=== PATIENT | female | born 1990 | race Caucasian/White ===

== ENCOUNTER 2022-06-30 10:53 | Emergency (ER) | payer OTHER, SELFPAY ==
[2022-06-30 11:10] VITALS: BP 132/80; PULSE 86; RESP 18; TEMP 36.4; O2SAT 99
== END 2022-07-01 04:48 | disposition left against medical advice (07) ==
DX: R10.30 Lower abdominal pain, unspecified (principal)
CPT/HCPCS: 99199

== ENCOUNTER 2022-07-17 18:21 | Emergency (ER) | payer OTHER, SELFPAY ==
[2022-07-17 18:24] VITALS: BP 128/78; PULSE 90; RESP 16; TEMP 36.6; O2SAT 99
--- NOTE | 2022-07-17 18:28 | ECG_ITS ---
Measurements Intervals [place] Rate: 80 P: 18 [place]: 125 QRS: 15 QRSD: 76 T: 20 QT: 349 QTc: 403 Interpretive Statements SINUS RHYTHM WITH SINUS ARRHYTHMIA BASELINE ARTIFACT- I, II, III, AVR, AVF NORMAL ECG COMPARED TO ECG 01/20/2019 15:20:59 SINUS ARRHYTHMIA NOW PRESENT Electronically Signed On 07-17-2022 18:38:55 [employer] by Michael Clemons D.O.
[2022-07-17 18:45] LABS: Basophils Absolute Auto 0.1 K/mm3 (0.0-0.1); Basophils Percent Auto 0.4 % (0.2-1.2); Eosinophils Absolute Auto 0.1 K/mm3 (0-0.3); Eosinophils Percent Auto 0.4 % (0-4.4); Hematocrit 37.7 % (37.0-47.0); Hemoglobin 12.4 g/dL (12.0-15.0); Immature Granulocyte Absolute 0.09 K/mm3 (0.00-0.031); Immature Granulocyte Percent A 0.6 % (0-0.5); Lymphocytes Absolute Auto 4.37 K/mm3 (0.9-3.2); Lymphocytes Percent Auto 27.6 % (18.3-44.2); Mean Corpuscular HGB Conc 32.9 g/dl (32-36); Mean Corpuscular Hemoglobin 27.9 pg (26-34); Mean Corpuscular Volume 84.9 fl (80-100); Mean Platelet Volume 9.9 fl (7.4-10.4); Monocytes Absolute Auto 0.9 K/mm3 (0.1-0.6); Monocytes Percent Auto 5.6 % (2.6-8.5); Neutrophils Absolute Auto 10.3 K/mm3 (1.3-6.7); Neutrophils Percent Auto 65.4 % (45.5-73.1); Platelet Count Result 395 k/mm3 (150-375); Red Blood Count 4.44 M/mm3 (4.2-5.4); Red Cell Distribution Width 13.4 % (11.5-14.5); White Blood Count 15.8 K/mm3 (4.5-10.0)
[2022-07-17 18:58] LABS: Add Urine Microscopic? YES; Appearance Urine Slightly Cloudy (Clear); Bilirubin Urine Negative (Negative); Blood Urine Trace-Intact (Negative); Color Urine Yellow (Yellow); Glucose Urine UA Negative (Negative); Ketones Urine Negative (Negative); Leukocyte Esterase Ur 1+ LEU/UL (Negative); Nitrate Urine Negative (Negative); Protein Urine Negative (Negative); Specific Grav Ur 1.025 (1.001-1.035); Urobilinogen Urine 0.2 mg/dL (<2.0)
[2022-07-17 18:58] LABS: Alanine Aminotransferase 15 U/L (6-35); Albumin Level 4.3 g/dL (3.5-5.1); Alkaline Phosphatase 56 U/L (38-126); Anion Gap 10 mmol/L (8-16); Aspartate Amino Transferase 21 U/L (14-36); Bilirubin,Total 0.2 mg/dL (0.2-1.3); Blood Urea Nitrogen 11 mg/dL (7-17); Calcium 9.5 mg/dL (8.4-10.2); Carbon Dioxide 23 mmol/L (22-30); Chloride 106 mmol/L (98-107); Estimated CRCL calculation 116 ml/min; Estimated Glomerular Filt Rate > 60; Glucose 91 mg/dL (65-110); Lipase 120 U/L (23-300); Potassium 3.7 mmol/L (3.4-5.0); Sodium 139 mmol/L (137-145)
[2022-07-17 19:15] LABS: Bacteria Urine Trace /hpf; Mucus Urine Rare /lpf; Squamous Epithelial Cell Urine Moderate /hpf (Few)
[2022-07-17 19:55] VITALS: BP 122/84; PULSE 74; RESP 18; TEMP 36.7; O2SAT 100
[2022-07-17 23:11] VITALS: PULSE 80
--- NOTE | 2022-07-17 23:51 | ED.DIZZY ---
HPI - Dizziness General Chief Complaint: Dizziness Stated Complaint: 8 weeks , sob, fever, dizzy, light headed Time Seen by Provider: 07/17/22 22:48 Source: patient Mode of arrival: ambulatory Limitations: no limitations History of Present Illness HPI Narrative: Patient is a 31-year-old female who presents the ED with multiple complaints. Patient reports having dizziness and lightheadedness for the past couple of days, and palpations for the last 2 days. Patient is currently approximately 8 weeks gestation. G2, P1. She is scheduled to see Dr. Glover next week for her first appointment. She has had a confirmed IUP at an outside hospital after an episode of vaginal bleeding recently. She currently denies any abdominal pain or vaginal bleeding. She does report she has had nausea with eating or drinking and has had a decreased p.o. intake. No vomiting. She states she has not had any dizziness since being in the ED. No recent cough or cold symptoms. No CP or SOB. No urinary symptoms. No diarrhea or constipation. No headache or vision changes. Related Data Allergies Allergy/AdvReac Type Severity Reaction Status Date / Time No Known Allergies Allergy Unverified 01/20/19 16:07 Review of Systems Review of Systems: CONSTITUTIONAL: Reports decreased PO intake. Denies fever, chills, or sweats. ENT: Denies rhinorrhea, congestion, sore throat. CARDIOVASCULAR: Reports palpitations. Denies chest pain. RESPIRATORY: Denies cough or dyspnea. GASTROINTESTINAL: Reports nausea. Denies abdominal pain, vomiting, or diarrhea. GENITOURINARY: Denies dysuria or hematuria. NEUROLOGIC: See HPI. All systems reviewed & are unremarkable except as noted in HPI and below [facility] Past Medical History Medical History (Updated 07/18/22 @ 01:05 by Tatyana Ladd PA-C) Anxiety Surgical History Surgical History (Updated 07/17/22 @ 23:52 by Tatyana Ladd PA-C) No pertinent past surgical history Social History Social History (Updated 07/17/22 @ 23:52 by Tatyana Ladd PA-C) Smoking status: Never smoker Exam Narrative: GENERAL: Well appearing, obese, non-toxic, in no acute distress. HEAD: Normocephalic, atraumatic. EYES: PERRLA/EOMI, conjunctiva clear. ENT: MMs slightly dry. NECK: Supple. No adenopathy, no masses. RESPIRATORY: Airway patent, respirations nonlabored. Clear to auscultation bilaterally, no rales, rhonchi, wheezing. CARDIOVASCULAR: Regular rate and rhythm without murmurs, rubs, or gallops. Radial pulses 2+ and equal bilaterally. ABDOMINAL: Soft, nontender, nondistended, no hepatosplenomegaly. Normoactive BS. MUSCULOSKELETAL: Moves all extremities. Strength/ROM intact without gross deformities. SKIN: Warm, dry, normal color. No rashes. NEURO: A&O X3. Speech clear. Cranial nerves II-XII grossly intact. Steady gait. No ataxic movements. No focal deficits. PSYCHIATRIC: Appropriate mood and affect. Normal interaction. Course Vital Signs Vital signs: Vital Signs Temperature 97.8 F 07/17/22 18:24 Pulse Rate 90 07/17/22 18:24 Respiratory Rate 16 07/17/22 18:24 Blood Pressure 128/78 07/17/22 18:24 Pulse Oximetry 99 07/17/22 18:24 Oxygen Delivery Room Air 07/17/22 18:24 Temperature 98.0 F 07/17/22 19:55 Pulse Rate 81 07/18/22 01:30 Respiratory Rate 18 07/17/22 19:55 Blood Pressure 119/83 07/18/22 01:30 Pulse Oximetry 100 07/17/22 19:55 Oxygen Delivery Room Air 07/17/22 19:55 MDM - Dizziness MDM Narrative Medical decision making narrative: Patient presented to ED with multiple complaints, dizziness. Currently 8 weeks gestation, confirmed IUP, denying abdominal pain or vaginal bleeding at this time. Basic labs obtained and fairly unremarkable. Mild leukocytosis of 15.8. CMP unremarkable. Beta quant greater than 100,000. EKG with sinus arrhythmia, otherwise no acute ST changes. No report of CP or SOB. COVID and flu negative. UA suspicious for infection w
[2022-07-17 23:54] VITALS: BP 120/72; PULSE 80
[2022-07-17 23:55] VITALS: BP 104/82; PULSE 78
[2022-07-17 23:57] VITALS: BP 112/73; PULSE 98
[2022-07-18] MEDS: SODIUM CHLORIDE 0.9% IV 1,000 ML 999 ML IV CONT (00:14)
[2022-07-18 00:42] LABS: Influenza A QL RT-PCR Negative (Negative); Influenza B QL RT-PCR Negative (Negative); SARS-CoV-2 RNA PCR Negative
[2022-07-18 01:28] VITALS: BP 119/73; BP 124/88; PULSE 77; PULSE 81
[2022-07-18 01:30] VITALS: BP 119/83; PULSE 81
== END 2022-07-18 02:00 | disposition home or self-care (01) ==
PROVIDERS: Emergency Medicine; Emergency Provider Physician Assistant; PCP Obstetrics & Gynecology
DX: O26.51 Maternal hypotension syndrome, first trimester (principal); O23.41 Unspecified infection of urinary tract in pregnancy, first trimester; O21.9 Vomiting of pregnancy, unspecified; Z3A.08 8 weeks gestation of pregnancy; Z20.822 Contact with and (suspected) exposure to COVID-19
CPT/HCPCS: 36415; 80053; 81001; 83690; 84702; 85025; 87086; 87088; 87636; 93005; 96365; 99284; J0696; J7030

== ENCOUNTER 2022-12-21 12:40 | Observation (INO) | payer OTHER, SELFPAY ==
[2022-12-21] VITALS (9 sets, daily range): BP systolic 100–127; BP diastolic 62–88; PULSE 83–123; RESP 18–20; TEMP 36.4–36.6; O2SAT 99; BMI 41.3
--- NOTE | 2022-12-21 13:11 | PC.NURSE ---
pt states she was unaware that OB and ED were different areas. pt states her OB wanted her to go to L&D to be checked for preeclampsia. Spoke with OB, pt to be transferred over to their department now and not seen in ED.
--- NOTE | 2022-12-21 13:45 | OBADM ---
This patient, Corky Flores, admitted to the OB room 115 per wheelchair from the ED for observation for abdominal cramping and headache. Patient/family oriented to hospital policies and general routines including ID bracelet, bed and alarms, visiting hours, pain management, procedures, bathroom and other care routines, personal items, smoking policy, room service/diet, and visiting hours. Patient/Family are encouraged to report perceived risks to care and to ask questions if they do not understand what they are told or what they should do.
[2022-12-21 14:36] LABS: Appearance Urine Clear (Clear); Bacteria Urine None Seen /hpf; Bilirubin Urine Negative (Negative); Blood Urine Negative (Negative); Color Urine Yellow (Yellow); Glucose Urine UA Negative (Negative); Ketones Urine 1+ mg/dL (Negative); Leukocyte Esterase Ur Trace LEU/UL (Negative); Nitrate Urine Negative (Negative); Non Pathogenic Casts 0-2; Protein Urine Negative (Negative); RBC Urine 0-2 /hpf (0-2); Specific Grav Ur 1.009 (1.001-1.035); Squamous Epithelial Cell Urine Few /hpf (Few); Urobilinogen Urine 0.2 mg/dL (<2.0); pH Urine 6.5 (5.0-9.0)
[2022-12-21 14:44] LABS: Add Urine Microscopic? YES
[2022-12-21] MEDS: TERBUTALINE SULFATE 1 MG/ML VIAL 0.25 MG SUB-Q (16:33)
--- NOTE | 2023-01-11 22:55 | P.PNOB_ITS ---
OB - Triage/Final Diagnosis Visit Information Comments/Additional reasons for admission: I have assessed the risk for this patient, Corky Flores, and determined that she would benefit from observation care. Evaluation Laboratory results: Laboratory Tests 12/21/22 14:25 Urine Color Yellow Urine Appearance Clear Urine pH 6.5 Ur Specific [place] 1.009 Urine Protein Negative Urine Glucose (UA) Negative Urine Ketones 1+ H Ur Blood (Man) Negative Urine Nitrate Negative Urine Bilirubin Negative Urine Urobilinogen 0.2 Leukocyte Esterase Rfl Trace H Urine RBC 0-2 Urine WBC 6-10 H Ur Squamous Epith Cells Few Urine Bacteria None seen Urine Casts 0-2 Final Diagnosis (1) False labor: Code(s): O47.9 - False labor, unspecified Status: Acute
== END 2022-12-21 18:06 | disposition home or self-care (01) ==
LOC: ANHED 13:13 → ANHOBPP 13:18
PROVIDERS: Admitting Provider Obstetrics & Gynecology; Emergency Provider Obstetrics & Gynecology; PCP Obstetrics & Gynecology; Visit Provider Obstetrics & Gynecology
DX: O47.03 False labor before 37 completed weeks of gestation, third trimester (principal); O26.893 Other specified pregnancy related conditions, third trimester; R10.9 Unspecified abdominal pain; Z3A.30 30 weeks gestation of pregnancy
CPT/HCPCS: 81001; 87086; 96365; 96372; G0378; G0379; J0696; J3105

== ENCOUNTER 2022-12-25 17:07 | Observation (INO) | payer OTHER, SELFPAY ==
[2022-12-25 17:26] VITALS: BP 102/65; PULSE 113
[2022-12-25 17:30] VITALS: BP 92/74; PULSE 111
[2022-12-25 18:00] VITALS: BP 106/62; PULSE 100
--- NOTE | 2022-12-25 18:06 | OBADM ---
This patient, Corky Flores, admitted to the OB room OB Post 117 for observation. pt states she was feeling occasional contractions at work and some of them were strong. she has been taking antibiotics for UIT since . Patient/family oriented to hospital policies and general routines including ID bracelet, bed and alarms, visiting hours, pain management, procedures, bathroom and other care routines, personal items, smoking policy, room service/diet, and visiting hours. Patient/Family are encouraged to report perceived risks to care and to ask questions if they do not understand what they are told or what they should do.
[2022-12-25 18:30] VITALS: BP 100/58; PULSE 101
--- NOTE | 2022-12-25 18:54 | PC.NURSE ---
Discharge instructions given to patient at this time with labor precautions, vaginal bleeding, leaking of fluid, decreased movement, and reasons to call or come back to the hospital. Patient verbalizes understanding. Printer error so no signature obtained but patient gives verbal confirmation of discharge instructions.
--- NOTE | 2023-01-21 19:34 | PM.OBTRLD ---
OB - Triage/Final Diagnosis Visit Information Comments/Additional reasons for admission: I have assessed the risk for this patient, Corky Flores, and determined that she would benefit from observation care. Final Diagnosis (1) False labor: Code(s): O47.9 - False labor, unspecified Status: Acute
== END 2022-12-25 18:58 | disposition home or self-care (01) ==
PROVIDERS: Admitting Provider Obstetrics & Gynecology; Visit Provider Obstetrics & Gynecology
DX: O47.03 False labor before 37 completed weeks of gestation, third trimester (principal); Z3A.30 30 weeks gestation of pregnancy
CPT/HCPCS: 59025; G0378; G0379

== ENCOUNTER 2023-01-01 21:50 | Observation (INO) | payer OTHER, SELFPAY ==
[2023-01-01 22:05] VITALS: BP 116/66; PULSE 91
[2023-01-01 22:06] VITALS: BMI 40.1
--- NOTE | 2023-01-01 22:06 | OBADM ---
This patient, Corky Flores, admitted to the OB room OB Post 117 for observation. Patient/family oriented to hospital policies and general routines including ID bracelet, bed and alarms, visiting hours, pain management, procedures, bathroom and other care routines, personal items, smoking policy, room service/diet, and visiting hours. Patient/Family are encouraged to report perceived risks to care and to ask questions if they do not understand what they are told or what they should do.
[2023-01-01 22:16] VITALS: BP 118/60; PULSE 91
[2023-01-01 22:31] VITALS: BP 114/68; PULSE 98
[2023-01-01 22:45] VITALS: BP 112/63; PULSE 100
[2023-01-01 23:40] LABS: Appearance Urine Clear (Clear); Bilirubin Urine Negative (Negative); Blood Urine Negative (Negative); Color Urine Yellow (Yellow); Glucose Urine UA Negative (Negative); Ketones Urine 3+ mg/dL (Negative); Leukocyte Esterase Ur Negative LEU/UL (Negative); Nitrate Urine Negative (Negative); Protein Urine Negative (Negative); Specific Grav Ur 1.022 (1.001-1.035); Urobilinogen Urine 0.2 mg/dL (<2.0); pH Urine 5.5 (5.0-9.0)
[2023-01-01 23:53] LABS: Add Urine Microscopic? YES
--- NOTE | 2023-01-21 20:52 | P.PNOB_ITS ---
OB - Triage/Final Diagnosis Visit Information Comments/Additional reasons for admission: I have assessed the risk for this patient, Corky Flores, and determined that she would benefit from observation care. Evaluation Laboratory results: Laboratory Tests 01/01/23 23:33 Urine Color Yellow Urine Appearance Clear Urine pH 5.5 Ur Specific [place] 1.022 Urine Protein Negative Urine Glucose (UA) Negative Urine Ketones 3+ H Ur Blood (Man) Negative Urine Nitrate Negative Urine Bilirubin Negative Urine Urobilinogen 0.2 Leukocyte Esterase Rfl Negative Final Diagnosis (1) False labor: Code(s): O47.9 - False labor, unspecified Status: Acute
== END 2023-01-02 00:12 | disposition home or self-care (01) ==
PROVIDERS: Admitting Provider Obstetrics & Gynecology; Visit Provider Obstetrics & Gynecology
DX: O47.03 False labor before 37 completed weeks of gestation, third trimester (principal); Z3A.31 31 weeks gestation of pregnancy
CPT/HCPCS: 81001; G0378; G0379

== ENCOUNTER 2023-02-14 15:06 | Inpatient (IN) | payer OTHER, SELFPAY ==
[2023-02-14] VITALS (82 sets, daily range): BP systolic 91–140; BP diastolic 48–89; PULSE 25–148; RESP 18; TEMP 36.4; O2SAT 79–100; BMI 39.2
[2023-02-14] MEDS: LACTATED RINGERS 1,000 ML 125 ML IV CONT ×2 (17:21→18:33)
[2023-02-14] MEDS: OXYTOCIN 30 UNITS/NS 500 ML 30 UNITS/500 ML BAG IV CONT (17:25)
--- NOTE | 2023-02-14 17:35 | P.PNAN_ITS ---
Anes - Eval Pre Procedure Procedure: labor epidural Date/Time: 02/14/23 17:35 Pre Op Diagnosis: nst Patient Data Age: 32 Gender: F Height: Weight: Last Vital Signs Pulse 92 02/14/23 17:32 BP 123/61 02/14/23 17:32 Allergies Allergy/AdvReac Type Severity Reaction Status Date / Time No Known Allergies Allergy Verified 12/21/22 13:11 Home Medications Medication Instructions Recorded Confirmed Type sertraline 50 mg tablet 25 mg PO DAILY 12/21/22 02/14/23 History ferrous sulfate 142 mg (45 mg 142 mg PO DAILY 02/14/23 02/14/23 History iron) tablet,extended release (Slow Fe) pediatric multivitamin no.49 2 tablet PO DAILY 02/14/23 02/14/23 History (Flintstones Gummies chewable tablet) Laboratory Tests 02/14/23 02/14/23 17:03 17:07 WBC Pending RBC Pending Hgb Pending Hct Pending MCV Pending MCH Pending MCHC Pending RDW Pending Plt Count Pending MPV Pending Immature Gran % (Auto) Pending Neut % (Auto) Pending Lymph % (Auto) Pending [place] % (Auto) Pending Eos % (Auto) Pending Baso % (Auto) Pending Lymph # (Auto) Pending [place] # (Auto) Pending Eos # (Auto) Pending Baso # (Auto) Pending Abs Immat Gran (auto) Pending Absolute Neuts (auto) Pending Absolute Nucleated RBC Pending Nucleated RBC % Pending RPR Pending Patient hx anesthesia problems: none Family hx anesthesia problems: none Results Review: All pre-operative results and documents have been reviewed as part of the pre- operative evaluation. [facility] Past Medical History Medical History (Updated 02/14/23 @ 17:36 by Rosey Guthrie CRNA) Anxiety Obesity (BMI 30-39.9) Surgical History Surgical History No pertinent past surgical history Social History Social History Smoking status: Never smoker Exam Day of Procedure 02/14/23 17:35 Patient weight: obese Heart: regular rate and rhythm Lungs: normal air movement Airway: Mallampati scale Neurological: alert and oriented
[2023-02-14 17:39] LABS: Basophils Absolute Auto 0.1 K/mm3 (0.0-0.1); Basophils Percent Auto 0.5 % (0.2-1.2); Eosinophils Absolute Auto 0.1 K/mm3 (0-0.3); Eosinophils Percent Auto 0.4 % (0-4.4); Hemoglobin 10.5 g/dL (12.0-15.0); Immature Granulocyte Percent A 2.6 % (0-0.5); Lymphocytes Absolute Auto 3.67 K/mm3 (0.9-3.2); Lymphocytes Percent Auto 23.8 % (18.3-44.2); Mean Corpuscular HGB Conc 31.8 g/dl (32-36); Mean Corpuscular Hemoglobin 26.3 pg (26-34); Mean Corpuscular Volume 82.7 fl (80-100); Mean Platelet Volume 10.8 fl (7.4-10.4); Monocytes Absolute Auto 1.1 K/mm3 (0.1-0.6); Monocytes Percent Auto 6.8 % (2.6-8.5); Neutrophils Absolute Auto 10.2 K/mm3 (1.3-6.7); Neutrophils Percent Auto 65.9 % (45.5-73.1); Platelet Count Result 290 k/mm3 (150-375); Red Blood Count 3.99 M/mm3 (4.2-5.4); Red Cell Distribution Width 16.6 % (11.5-14.5); White Blood Count 15.4 K/mm3 (4.5-10.0)
--- NOTE | 2023-02-14 17:45 | LDADM ---
This patient, Corky Flores, was admitted to Labor/Delivery/Recovery 107 on 02/14/23 at 15:06. Plans for labor, pain management and were discussed with patient. Patient/family oriented to hospital policies and general routines including ID bracelet, bed and alarms, visiting hours, pain management, procedures, bathroom and other care routines, personal items, smoking policy, room service/diet and guest tray routines, security routines, and visiting hours. Patient/Family are encouraged to report perceived risks to care and to ask questions if they do not understand what they are told or what they should do. See OBIX for further documentation.
--- NOTE | 2023-02-14 18:09 | PM.IMHP ---
H&P: HPI History of Present Illness Date/Time: 02/14/23 18:09 pt admitted for IOL, pt c/o only feeling one movement all day. In the office BPP 8/10, points off for breathing. Pt felt something was very wrong prior to her testing. Sent to LD for further monitoring. Previously has noted umbilical cord around neck x 3. Did appear on later us to resolve. has been complicated by obesity, anxiety. on admission NST revealed variables and a late decel, not feeling much movement, discussed with Dr. Glover Chief Complaint: decreased movement Review of Systems Review of Systems: All systems reviewed & are unremarkable except as noted in HPI and below PMFSH Past Medical History Medical History (Updated 02/14/23 @ 18:17 by Sussy Maria CNM) Anxiety Obesity (BMI 30-39.9) Surgical History Surgical History No pertinent past surgical history Family History Family History (Updated 02/14/23 @ 17:54 by Violeta Parekh RN) Sibling Hydronephrosis Social History Social History Smoking status: Never smoker Meds Home Medications and Allergies Home Medications Medication Instructions Recorded Confirmed Type sertraline 50 mg tablet 25 mg PO DAILY 12/21/22 02/14/23 History ferrous sulfate 142 mg (45 mg 142 mg PO DAILY 02/14/23 02/14/23 History iron) tablet,extended release (Slow Fe) pediatric multivitamin no.49 2 tablet PO DAILY 02/14/23 02/14/23 History (Flintstones Gummies chewable tablet) Allergies Allergy/AdvReac Type Severity Reaction Status Date / Time No Known Allergies Allergy Verified 12/21/22 13:11 Vital Signs Vital Signs - 24 hr 02/14/23 17:25 02/14/23 17:31 02/14/23 18:01 Pulse Rate 95 92 103 H Blood Pressure 111/74 123/61 128/86 Oxygen Delivery 02/14/23 17:45 02/14/23 17:32 02/14/23 18:02 Pulse Rate 92 103 H Blood Pressure 123/61 128/86 Oxygen Delivery Room Air Exam Const: General: cooperative and anxious Chest: Chest palpation & inspection: normal inspection of the chest Resp: Effort & Inspection: normal respiratory effort and able to speak in complete sentences Cardio: Rate: regular rate Rhythm: regular rhythm GI: Other: gravid, soft : Other: SVE 3/60/-2 AROM small amount of clear odorless fluid Skin: General skin exam: normal color Extrem: Right lower extremity: normal to inspection Left lower extremity: normal to inspection Psych: Appearance: grossly normal Mental Status: mental status grossly normal H&P: Results Labs Labs: Short CBC 02/14/23 Range/Units 17:03 WBC 15.4 H (4.5-10.0) K/mm3 Hgb 10.5 L (12.0-15.0) g/dL Hct 33.0 L (37.0-47.0) % Plt Count 290 (150-375) k/mm3 Assessment and Plan Assessment and plan (1) Non-reassuring electronic monitoring tracing: Code(s): O36.8390 - Maternal care for abnormalities of the heart rate or rhythm, unspecified trimester, not applicable or unspecified Status: Acute Plan IOL for non reassuring status anticipate vaginal delivery
[2023-02-14] MEDS: SODIUM CHLORIDE 0.9% IV 300 ML 600 ML I-UTERINE (22:34)
[2023-02-15] VITALS (35 sets, daily range): BP systolic 92–125; BP diastolic 48–73; PULSE 68–179; RESP 15–17; TEMP 36.4–36.6; O2SAT 92–100
--- NOTE | 2023-02-15 01:27 | PM.OBPRVD ---
OB - Delivery Note Procedure Delivery date: 02/15/23 Procedure: vaginal delivery Events: Other (non reassuring heart rate tracing) Induction method: AROM and Per Pitocin Protocol Delivery monitor: External FHT and Internal Uterine Route of delivery: Laceration Description: Vaginal (extended into right labia) Delivery repair: vicryl Specimen: Yes Quantitative Blood Loss (ml): 180 Anesthesia type: Epidural Disposition: Floor Baby Date of : 02/15/23 Time of : 01:12 Weeks of gestation at delivery: 38 gender: Male presentation: vertex position: Left Occiput Anterior Placenta delivery description: Spontaneous Cord Vessel Description: 3 Vessels, Nuchal Cord, Loose (x1), Clamped/Cut and Delayed Cord Clamping score one minute: 8 score five minutes: 9 Narrative: mother and baby skin to skin in stable condition
[2023-02-15] MEDS: OXYTOCIN 30 UNITS/NS 500 ML 30 UNITS/500 ML BAG 125 UNITS IV CONT (01:53)
[2023-02-15 06:04] LABS: Rapid Plasma Reagin Non-Reactive (NonReactive)
[2023-02-16] MEDS: ACETAMINOPHEN 325 MG TABLET 650 MG PO ×2 (00:15→07:38)
[2023-02-16 03:58] VITALS: BP 94/61; PULSE 78; RESP 16; TEMP 36.6; O2SAT 97
[2023-02-16 03:58] LABS: Hematocrit 35.1 % (37.0-47.0); Hemoglobin 9.6 g/dL (12.0-15.0)
--- NOTE | 2023-02-16 07:16 | PM.OBPNVD ---
OB - PN: Subj Subjective Date/time seen: 02/16/23 07:16 vaginal delivery pp day 1 OB - PN: Obj Data Labs 02/16/23 03:38 Labs: Laboratory Results - last 24 hr 02/16/23 03:38 Hgb 9.6 L Hct 35.1 L OB - PN A/P Plan day: 1 Plan: routine care Time Spent With Patient Time: Total time spent is greater than 50% in coordination of care (as documented) at patient's floor/unit and/or counseling patient: Review of Systems Review of Systems: All systems reviewed & are unremarkable except as noted in HPI and below Exam Const: General: cooperative, healthy appearing and comfortable Chest: Chest palpation & inspection: normal inspection of the chest Resp: Effort & Inspection: normal respiratory effort Cardio: Rate: regular rate Rhythm: regular rhythm GI: Other: soft Skin: General skin exam: normal color Extrem: Right lower extremity: normal to inspection Left lower extremity: normal to inspection Psych: Appearance: grossly normal
--- NOTE | 2023-02-16 07:26 | PM.OBDSVD ---
DS: Admitting Diagnosis Discharge Date 02/16/23 Admitting Diagnosis non reassuring heart rate DS: Discharge Diagnosis Discharge Diagnosis (1) Vaginal delivery: Code(s): O80 - Encounter for full-term uncomplicated delivery Status: Acute OB - DS: Summary OB Procedures : None OB Procedures Intrapartum: Spontaneous Vag Delivery OB Procedures: : None Time Spent with Patient Time attestation: Total time spent providing and/or coordinating discharge services: DS: Data Data Completed and Pending Pending studies at discharge: Pending at discharge 02/15/23 01:16 Surgical [PTH] Routine Labs on day of discharge: Labs from last 24 hours 02/16/23 03:38 Hgb 9.6 L Hct 35.1 L Discharge Plan Discharge Attending physician on discharge: Ole Glover Discharging Clinician: Sussy Maria Patient Disposition: Home, Self-Care Activity: pelvic rest Diet: regular Patient Instructions: Antibiotic Form Stand Alone Forms: General Discharge Information Follow-up/Referrals: Sussy Maria, CNM [Certified Nurse Public Relations Coordinator] - 4 Weeks Discharge Medications: New sertraline 25 mg tablet 25 mg PO DAILY Qty: 30 1RF Continued Slow Fe 142 mg (45 mg iron) Tablet Extended Release 142 mg PO DAILY Flintstones Gummies Tablet,Chewable 2 tablet PO DAILY Discontinued sertraline 50 mg tablet 25 mg PO DAILY Date of admission: 02/14/23 15:06 Primary Care Provider: PHYSICIAN,STEWARD/STEWARDESS [employer] Admitting Provider: Ole Glover Attending physician on admission: Ole Glover Condition: Stable
[2023-02-16] MEDS: DOCUSATE SODIUM 100 MG CAPSULE PO (07:30)
[2023-02-16] MEDS: POLYSACCHARIDE IRON COMPLEX 150 MG CAPSULE PO (07:38)
[2023-02-16] MEDS: WITCH HAZEL 40 PADS 1 PAD TOPICAL (07:38)
--- NOTE | 2023-02-16 13:08 | WPDANLDPN2 ---
Anes-Prog Note L&D Date/Time: 02/16/23 13:08 Comfortable throughout: labor and delivery Neuraxial method: epidural Epidural/Spinal procedure site: clean & non-tender Neuro status: Neuro function grossly intact. Cardiovascular status: normal Respiratory status: normal Airway patency: baseline Mental status: baseline Post-Op hydration status: normal Vital Signs: Last Vital Signs Temp 36.6 C 02/16/23 03:58 Pulse 78 02/16/23 03:58 Resp 16 02/16/23 03:58 BP 94/61 L 02/16/23 03:58 Pulse Ox 97 02/16/23 03:58 O2 Del Method Room Air 02/15/23 20:00 Pain score (VAS): 3 I/O: Intake & Output 02/15/23 02/16/23 02/16/23 23:59 07:59 15:59 Intake Total 620 120 Balance 620 120 Post-procedural complaints: none Patient feedback: Patient satisfied with anesthetic care.
== END 2023-02-16 13:35 | disposition home or self-care (01) | DRG 560 ==
LOC: ANHOBOP 16:16 → ANHLDR 16:16 → ANHOB2 02-15 13:03
PROVIDERS: Advanced Practice Midwife; Admitting Provider Obstetrics & Gynecology; Visit Provider Obstetrics & Gynecology
DX: O36.8330 Maternal care for abnormalities of the fetal heart rate or rhythm, third trimester, not applicable or unspecified (principal); Z37.0 Single live birth; E66.9 Obesity, unspecified; O36.8130 Decreased fetal movements, third trimester, not applicable or unspecified; Z3A.38 38 weeks gestation of pregnancy; O99.214 Obesity complicating childbirth; O99.344 Other mental disorders complicating childbirth; F41.9 Anxiety disorder, unspecified; O69.81X0 Labor and delivery complicated by cord around neck, without compression, not applicable or unspecified; O71.4 Obstetric high vaginal laceration alone
CPT/HCPCS: 36415; 85014; 85018; 85025; 86592; 86850; 86900; 86901; 88307; A9270; J2590; J2795; J7030; J7120

== ENCOUNTER 2023-06-29 18:13 | Emergency (ER) | payer OTHER, SELFPAY ==
[2023-06-29] VITALS (16 sets, daily range): BP systolic 114–143; BP diastolic 59–85; PULSE 74–92; RESP 12–18; TEMP 36.2–36.8; O2SAT 97–100
--- NOTE | ~2023-06-29 | XR_ITS ---
EXAMINATION: XR chest 1V portable DATE: 06/29/2023 20:23 INDICATION: Weakness TECHNIQUE: frontal view of the chest was obtained. COMPARISON: Chest radiograph dated 01/20/2019 FINDINGS: The lungs remain clear with no focal airspace opacities, pulmonary edema, pleural effusion or pneumot horax. The cardiomediastinal silhouette is normal. Mild lower thoracic levocurvature. IMPRESSION: 1. No acute cardiopulmonary disease. Reviewed, dictated and finalized at location A. [facility]
--- NOTE | 2023-06-29 19:35 | ECG_ITS ---
Measurements Intervals [place] Rate: 80 P: 41 [place]: 140 QRS: 18 QRSD: 86 T: 24 QT: 399 QTc: 460 Interpretive Statements SINUS RHYTHM WITH SINUS ARRHYTHMIA NORMAL ELECTROCARDIOGRAM COMPARED TO ECG 07/17/2022 18:33:36 NO SIGNIFICANT CHANGES Electronically Signed On 06-30-2023 7:36:21 CREDIT INTERN by Chaitanya Fontenot M.D.
[2023-06-29] MEDS: SODIUM CHLORIDE 0.9% IV 1,000 ML 999 ML IV CONT (19:59)
[2023-06-29 20:10] LABS: Basophils Absolute Auto 0.1 K/mm3 (0.0-0.1); Basophils Percent Auto 0.6 % (0.2-1.2); Eosinophils Absolute Auto 0.1 K/mm3 (0-0.3); Eosinophils Percent Auto 1.2 % (0-4.4); Hematocrit 40.8 % (37.0-47.0); Immature Granulocyte Absolute 0.03 K/mm3 (0.00-0.031); Immature Granulocyte Percent A 0.3 % (0-0.5); Lymphocytes Absolute Auto 4.92 K/mm3 (0.9-3.2); Mean Corpuscular HGB Conc 31.9 g/dl (32-36); Mean Corpuscular Hemoglobin 27.3 pg (26-34); Mean Corpuscular Volume 85.5 fl (80-100); Mean Platelet Volume 10.2 fl (7.4-10.4); Monocytes Absolute Auto 0.6 K/mm3 (0.1-0.6); Monocytes Percent Auto 5.2 % (2.6-8.5); Neutrophils Absolute Auto 5.2 K/mm3 (1.3-6.7); Neutrophils Percent Auto 47.7 % (45.5-73.1); Platelet Count Result 462 k/mm3 (150-375); Red Blood Count 4.77 M/mm3 (4.2-5.4); Red Cell Distribution Width 14.1 % (11.5-14.5); White Blood Count 10.9 K/mm3 (4.5-10.0)
[2023-06-29 20:23] LABS: Appearance Urine Clear (Clear); Bilirubin Urine Negative (Negative); Blood Urine Negative (Negative); Color Urine Yellow (Yellow); Glucose Urine UA Negative (Negative); Ketones Urine Negative (Negative); Leukocyte Esterase Ur Negative LEU/UL (Negative); Nitrate Urine Negative (Negative); Protein Urine Negative (Negative); Specific Grav Ur 1.008 (1.001-1.035); Urobilinogen Urine 0.2 mg/dL (<2.0); pH Urine 6.5 (5.0-9.0)
[2023-06-29 20:24] LABS: Lactic Acid Reflex 0.7 mmol/L (0.7-2.0)
[2023-06-29 20:25] LABS: Alanine Aminotransferase 21 U/L (6-35); Albumin Level 4.8 g/dL (3.5-5.1); Alkaline Phosphatase 82 U/L (38-126); Anion Gap 7 mmol/L (8-16); Aspartate Amino Transferase 34 U/L (14-36); Bilirubin,Total 0.5 mg/dL (0.2-1.3); Blood Urea Nitrogen 13 mg/dL (7-17); Calcium 9.5 mg/dL (8.4-10.2); Carbon Dioxide 29 mmol/L (22-30); Chloride 102 mmol/L (98-107); Estimated CRCL calculation 104 ml/min; Estimated Glomerular Filt Rate > 60; Glucose 92 mg/dL (65-110); Magnesium 2.1 mg/dL (1.6-2.3); Potassium 3.8 mmol/L (3.4-5.0); Sodium 138 mmol/L (137-145)
[2023-06-29 20:26] LABS: Add Urine Microscopic? NO
[2023-06-29 20:37] LABS: Troponin I < 0.012 ng/mL (0.000-0.034)
[2023-06-29 20:47] LABS: Influenza A QL RT-PCR Negative (Negative); Influenza B QL RT-PCR Negative (Negative); RSV RNA, RT-PCR Negative (Negative); SARS-CoV-2 RNA PCR Negative (Negative)
--- NOTE | 2023-06-29 20:55 | ED.GENADULT ---
HPI - General Adult General Chief complaint: Dizziness Stated complaint: Dizzy/Lightheaded/[place]/nausea Time Seen by Provider: 06/29/23 19:26 History of Present Illness HPI narrative: patient is a 32-year-old female presents emergency department chief complaint of dizziness. Patient reports the dizziness is a sensation of being lightheaded patient states that it is worse whenever she stands up the patient denies vomiting denies diarrhea reports that her last menstrual period was somewhat heavier but she is currently not having any active bleeding. Related Data Allergies Allergy/AdvReac Type Severity Reaction Status Date / Time No Known Allergies Allergy Verified 06/29/23 18:14 Review of Systems Review of Systems: A 10 system review of systems was completed on the patient and is negative except for what is stated in the HPI. Nursing and ancillary documentation was reviewed. [facility] Past Medical History Medical History Anxiety Obesity (BMI 30-39.9) Surgical History Surgical History No pertinent past surgical history Family History Family History Sibling Hydronephrosis Social History Social History Smoking status: Never smoker Substance use: never Lack of Transportation: No Lack of Food: Never True Current Housing: I Have Housing Concerned About Future Housing: No Difficulty Paying Gas/Electric Bills: YES Difficulty Paying for Meds: No Currently Unemployed: No Education: High School Diploma/GED Difficulty w/ Childcare or Family Care: No Spiritual care concerns: No Exam Narrative: GENERAL: Well-appearing, well-nourished, and in no acute distress. HEAD: Normocephalic, atraumatic. EYES: PERRLA and EOMI. ENT: Nares clear, no rhinorrhea or epistaxis. Mucous membranes moist. NECK: Supple. CHEST: Clear to auscultation. No respiratory distress. HEART: Regular rate and rhythm. No murmur heard. Normal peripheral pulses. ABDOMEN: Soft, nontender, nondistended, normal active bowel sounds. EXTREMITIES: Normal range of motion. No edema. SKIN: Warm, dry, no rash. NEURO: No focal deficits. Alert and oriented x3. PSYCH: Normal mood and affect. Course Vital Signs Vital signs: Vital Signs Temperature 36.2 C L 06/29/23 18:31 Pulse Rate 86 06/29/23 18:31 Respiratory Rate 18 06/29/23 18:31 Blood Pressure 143/62 H 06/29/23 18:31 Pulse Oximetry 97 06/29/23 18:31 Oxygen Delivery Room Air 06/29/23 18:31 Temperature 36.8 C 06/29/23 19:25 Pulse Rate 82 06/29/23 20:23 Respiratory Rate 12 06/29/23 20:23 Blood Pressure 114/59 L 06/29/23 20:23 Pulse Oximetry 100 06/29/23 20:23 Oxygen Delivery Room Air 06/29/23 18:31 Medical Decision Making MDM Narrative Medical decision making narrative: Differential diagnosis includes dehydration, anemia, UTI, COVID laboratory studies were obtained on the patient which showed a white count of 10.9 hemoglobin was 13.0 this is increased from her previous studies were was 9.0. Patient did have an elevated platelet count at 462 the electrolytes were within normal limits troponin was negative urinalysis showed no evidence of UTI COVID was negative bedside test was negative Vital Signs Vital Signs: Vital Signs Temperature 36.2 C L 06/29/23 18:31 Pulse Rate 86 06/29/23 18:31 Respiratory Rate 18 06/29/23 18:31 Blood Pressure 143/62 H 06/29/23 18:31 Pulse Oximetry 97 06/29/23 18:31 Oxygen Delivery Room Air 06/29/23 18:31 Temperature 36.8 C 06/29/23 19:25 Pulse Rate 82 06/29/23 20:23 Respiratory Rate 12 06/29/23 20:23 Blood Pressure 114/59 L 06/29/23 20:23 Pulse Oximetry 100 06/29/23 20:23 Oxygen Delivery Room Air
== END 2023-06-29 21:23 | disposition home or self-care (01) ==
PROVIDERS: Emergency Provider Emergency Medicine; PCP Pediatrics
DX: R42 Dizziness and giddiness (principal); Z20.822 Contact with and (suspected) exposure to COVID-19
CPT/HCPCS: 36415; 71045; 80053; 81003; 81025; 83605; 83735; 84484; 85025; 87637; 93005; 99284; J7030

== ENCOUNTER 2024-01-03 12:43 | Outpatient (CLI) | payer OTHER, SELFPAY | END 2024-01-03 12:44 | disposition home or self-care (01) | LOC: ANHLAB 12:45 | PROVIDERS: PCP Pediatrics; Visit Provider Obstetrics & Gynecology | DX: Z01.818 Encounter for other preprocedural examination (principal); N92.0 Excessive and frequent menstruation with regular cycle | CPT/HCPCS: 36415; 86850; 86900; 86901 ==

== ENCOUNTER 2024-01-09 00:16 | Day surgery (SDC) | payer OTHER, SELFPAY ==
--- NOTE | 2024-01-02 17:30 | PC.NURSE ---
Report to the Outpatient Waiting Room, entrance under the green pavilion located off [facility], at time 0600 on date 01/09/24. Planned Procedure Time: 0730. Time changes happen often and if your time is changed the preop area will call you the afternoon before. - You and your visitor will be asked to self-screen and do not enter if you have any COVID symptoms. - A mask is optional within the hospital at this time. Patients may have clear liquids (water, carbonated beverages, clear teas, apple juice) until 3 hours prior to surgery with a maximum of 20 ounces. 0430 - No food from midnight until time of surgery - Infants may have breast milk until 4 hours before surgery, formula 6 hours prior to surgery. - Children will be allowed to drink immediately following surgery. If applicable, please bring a bottle or sippy cup to assist with drinking. Juice, water, soda, and popsicles are readily available. For infants on formula, please bring formula the day of surgery. Pacifiers are allowed. Take the following medications with a SIP of water the morning of surgery: SERTRALINE DO NOT STOP ANY OF YOUR OTHER PRESCRIPTION MEDICATIONS PRIOR TO SURGERY ?EXCEPT THE FOLLOWING Medications to discontinue per physician N/A Date to take last dose Please no make-up, nail danish, hairspray, perfume, deodorant, or body powder the day of surgery. No jewelry (including any body piercings) or valuables the day of surgery, leave them at home. Please take a shower or bath the night before, or the morning of, surgery with an antibacterial soap. Wear comfortable, loose fitting clothing. Children are encouraged to wear pajamas. - Jewelry must be removed prior to entering the operating room. Rings and piercings that are not removed may be cut off. - The hospital will not accept responsibility for valuables. - Please leave all valuables, including medications, at home the day of surgery. If you are going home after surgery, a licensed farm truck driver must drive you home. - NO public transportation without another adult if you receive anesthesia. - We recommend that an adult stay with you for 24 hours following discharge. - We also recommend that you do not drive, make important decision, drink alcoholic beverages, or take any drugs that were not prescribed by your health care provider for at least 24 hours after your discharge time. For Pediatric surgeries, we recommend two adults accompany the child home. Follow any additional instructions given to you from your surgeon. If you or anyone in your household have experienced Covid symptoms in the past week, please notify your surgeon or the nurse liaison at the phone number below for possible testing. Telephone instructions given to Patient- Corky Flores and asked if any additional questions and then verbalized understanding. Patient advised to call surgeon office or pre surgery nurse liaison [phone] if any additional questions.
[2024-01-02 17:40] VITALS: BMI 39.1
[2024-01-09] VITALS (11 sets, daily range): BP systolic 91–119; BP diastolic 51–80; PULSE 66–86; RESP 12–16; TEMP 36.2–36.9; O2SAT 97–100; BMI 39.3
[2024-01-09] MEDS: LACTATED RINGERS 1,000 ML 30 ML IV CONT ×2 (06:30→09:05)
[2024-01-09] MEDS: ACETAMINOPHEN 500 MG TABLET 1000 MG PO (06:34)
[2024-01-09] MEDS: KETOROLAC 15 MG/ML VIAL (*BKC) IV PUSH (06:34)
[2024-01-09] MEDS: SCOPOLAMINE 1 MG PATCH 1 PATCH TRANSDERM (07:20)
--- NOTE | 2024-01-09 07:20 | WPDHPUPDATE1 ---
History and Physical Update Update Date/Time: 01/09/24 07:20 History and Physical has been reviewed, including an updated exam of the patient. There are NO changes in the patient's condition. Risks, benefits, and alternatives have been discussed and questions answered. Patient agrees to proceed with procedure.
--- NOTE | 2024-01-09 07:23 | WPDANESEPPF ---
Anes - Initial Pre Proc Eval Procedure: Operation Date: 01/09/24 07:30 Proposed Procedures p Total Laparoscopic Hysterectomy with Bilateral Salpingectomy - David Glover MD Date/Time: 01/09/24 07:23 Surgeon: David Glover MD Pre Op Diagnosis: menorrhagia Patient Data Age: 33 Gender: F Height: 1.52 m Weight: 91.3 kg Last Vital Signs Temp 36.7 C 01/09/24 05:52 Pulse 80 01/09/24 05:52 Resp 16 01/09/24 05:52 BP 119/78 01/09/24 05:52 Pulse Ox 100 01/09/24 05:52 O2 Del Method Room Air 01/09/24 05:52 Allergies Allergy/AdvReac Type Severity Reaction Status Date / Time No Known Allergies Allergy Verified 01/09/24 06:13 Home Medications Medication Instructions Recorded Confirmed Type sertraline 50 mg tablet 50 mg PO DAILY 01/02/24 01/09/24 History Patient hx anesthesia problems: none Family hx anesthesia problems: other (slow to awaken) Results Review: All pre-operative results and documents have been reviewed as part of the pre-operative evaluation. [facility] Past Medical History Medical History Anxiety Obesity (BMI 30-39.9) Surgical History Surgical History No pertinent past surgical history Family History Family History Sibling Hydronephrosis Social History Social History Smoking status: Never smoker Substance use: never Lack of Transportation: No Lack of Food: Never True Current Housing: I Have Housing Concerned About Future Housing: No Difficulty Paying Gas/Electric Bills: YES Difficulty Paying for Meds: No Currently Unemployed: No Education: High School Diploma/GED Difficulty w/ Childcare or Family Care: No Spiritual care concerns: No Anes - Eval Final PreProcedure Day of Procedure 01/09/24 07:23 Patient weight: obese Heart: regular rate and rhythm Lungs: clear to auscultation Airway: Mallampati scale class II Neurological: alert and oriented Last oral intake: >/= 8 hours ASA classification: III Emergent: no Anesthetic plan: proceed Anesthesia type and monitoring: general ETT and standard monitoring Results Review: All pre-operative results and documents have been reviewed as part of the pre-operative evaluation. Informed Consent: The patient's anesthetic plan and its attendant risks and benefits were discussed with the patient/family/POA. Questions were solicited and answers provided to the satisfaction of the patient/family/POA.
[2024-01-09] MEDS: ceFAZolin 2 GM/D5W 50 ML 2 GM/50 ML BAG IVPB (07:25)
[2024-01-09] MEDS: ceFAZolin SODIUM 1 GM VIAL (08:07)
[2024-01-09] MEDS: METHYLENE BLUE 0.5% INJ 10 ML AMPULE IRRIGATION (08:31)
--- NOTE | 2024-01-09 09:09 | P.OP_ITS ---
Procedure Note - Detailed Date of Procedure 01/09/24 Pre-op Diagnosis menorrhagia Post-op Diagnosis Same Procedure Performed Total laparoscopic hysterectomy and bilateral salpingo-oophorectomy. Surgeon David Glover MD Anesthesia General Description of Procedure This patient was taken to the operating room. She was prepped and draped in the dorsal lithotomy position after induction of general anesthesia. The uterine manipulator and Willi cup were placed. This was done with a speculum and tenaculum. The speculum was placed. The cervix was grasped with a tenaculum. The stay sutures were placed at 3 and 9:00 a.m.. The stay sutures of 0 Vicryl were brought through the appropriately sized Willi cup. The tip of the YISEL manipulator was placed in the intrauterine cavity. The cup was slid into place around the cervix and into the fornices. It was locked into place. The sutures were then wrapped around the handle and tied under tension. A 5 mm skin incision was made in the left upper quadrant the abdomen. A 5 mm trocar was inserted into the intrauterine cavity under direct visualization of the scope. Pneumoperitoneum was achieved. A left lower quadrant 11 mm incision was made with scalpel. An 11 mm trocar was inserted into the anterior abdominal cavity under direct visualization the scope. A 5 mm infraumbilical incision was made with a scalpel and a 5 mm trocar was inserted the intra-abdominal cavity under direct visualization of the scope. Bilateral ureteral lysis was performed. This was done from the pelvic brim down to the uterine artery. This was done with careful dissection using sharp and blunt dissection. The infundibulopelvic ligaments were isolated after identi fication of the ureters bilaterally. These infundibulopelvic ligaments were cauterized and transected with LigaSure cautery. The para ovarian tissue was cauterized and transected with LigaSure cautery bilaterally. Moving around the ovary into the broad ligament the tissue was cauterized transected with LigaSure cautery. The round ligaments were cauterized transected with LigaSure cautery this was all done in a bilateral fashion. In a stepwise fashion along the lateral aspects of the uterus the round ligament and broad ligaments were cauterized transected down to the level of the uterine arteries. A bladder flap was created in the bladder was moved distally to the end of the cervix and over the Willi cup. The bilateral uterine arteries were cauterized and transected. Colpotomy was then performed. In a circumferential fashion the vagina was transected using unipolar cautery. The incision was made down on the Willi cup. The uterus, cervix, fallopian tubes and ovaries were taken out through the vagina. A pneumo occluder was placed in the vagina. The vaginal cuff was closed with a 0 V lock suture in a running fashion. The pelvis was irrigated with copious amounts antibiotic irrigation. The ureters were again examined and found to be intact and flowing freely under the uterine arteries into the bladder. Cystoscopy was performed. The cystoscope was inserted in the ureteral orifices were examined. methylene blue had been previously given was seen to egress from both ureteral orifices. The bladder was intact . The cystoscope was withdrawn. The vagina was irrigated with Betadine solution after removal of the Pneumo occluder. The patient was taken to recovery room. She was stable condition. Sponge lap and needle counts were correct x2. Drains Yes Packing No Pathology Yes Complications No immediate complications Condition Stable Disposition Floor
[2024-01-09] MEDS: fentaNYL CITRATE INJ (*CRX) 100 MCG/2 ML VIAL 25 MCG IV PUSH ×4 (09:34→10:00)
--- NOTE | 2024-01-09 10:22 | ADMGEN ---
This patient, Corky Flores, was admitted to OB 2nd Floor Room 279-00. Patient/family oriented to hospital policies and general routines including ID bracelet, bed and alarms, visiting hours, pain management, procedures, bathroom and other care routines, personal items, smoking policy, room service/diet, and visiting hours. Information on how to activate the Rapid Response Team has been discussed. Patient/Family are encouraged to report perceived risks to care and to ask questions if they do not understand what they are told or what they should do.
[2024-01-09] MEDS: DEXTROSE 5%/0.45% SOD CHL 1,000 ML 125 ML IV CONT (10:52)
[2024-01-09] MEDS: SIMETHICONE 80 MG TAB.CHEW PO ×2 (12:00→17:27)
[2024-01-09] MEDS: KETOROLAC 30 MG/ML VIAL (*BKC) IV PUSH ×2 (12:00→17:45)
--- NOTE | 2024-01-09 20:02 | PC.NURSE ---
Pt up oob to bathroom, voided 200mls blue-tinged urine. Pt instructed to increase PO fluids and to call for assistance again when needing to void next time. pt agreed.
[2024-01-10 00:08] VITALS: BP 92/62; PULSE 78; RESP 18; TEMP 36.9; O2SAT 99
[2024-01-10] MEDS: IBUPROFEN 600 MG TABLET PO ×2 (00:26→07:34)
[2024-01-10] MEDS: HYDROcodone/acetaminophen (*CRX) 5-325 MG TABLET 1 TAB PO (04:55)
--- NOTE | 2024-01-10 05:11 | PC.NURSE ---
0500- pt up to void, again urine collected in hat of 100mls with blue tinged urine in toilet. Pt states that she never feels that she empties her bladder fully and that this has been an issue for her since the age of 17. This nurse bladder scanned pt with a result of 365mls residual post void. time spent with pt explaining benefits of placing FC again as opposed to increasing po fluids and giving her another hour to void. Pt states she does not want another catheter and started to become tearful. Pt states that she is having more pain when getting up to toilet this time in her incisions. Kevin 5/325mg tab given. This RN paged Dr. Glover to inform.
--- NOTE | 2024-01-10 06:26 | PC.NURSE ---
0626- LM on Dr. Glover's VM again to discuss pts bladder scan results/pts concerns. Endorsed this to day RN Almita Garner.
--- NOTE | 2024-01-10 06:50 | PC.NURSE ---
Straight catheter placed to drain bladder and then removed. Procedure discussed with patient and then discussed during the procedure, pt tolerated well. 500cc's of clear blue urine drained from bladder. Dr. Glover notified, no new orders received.
[2024-01-10] MEDS: SIMETHICONE 80 MG TAB.CHEW PO (07:34)
--- NOTE | 2024-01-10 08:37 | PM.GYNPNOP ---
WOOD [employer]APER - A/P Postoperative Procedures: Procedures Operation Date: 01/09/24 07:30 Actual Procedure Side Surgeon p Total Laparoscopic Hysterectomy with Bilateral Salpingectomy Bilateral David Glover MD Postoperative day: 1 Postoperative status: doing well and other (Tollerating Regular Diet) Postoperative plan: routine post-op care and discharge Time Spent With Patient Time: Total time spent is greater than 50% in coordination of care (as documented) at patient's floor/unit and/or counseling patient: Time with patient: 15 - 25 minutes WOOD [employer]ER- PN:Subj Post-Op Subjective Date/time seen: 01/10/24 08:37 Subjective: patient reports feeling better, pain is well controlled and patient is tolerating oral intake Exam Const: General: cooperative, healthy appearing, comfortable and no acute distress Resp: Auscultation: no crackles, no rales, no rhonchi and no wheezes Cardio: Rhythm: regular rhythm Heart sounds: no click and no murmurs GI: Inspection: non-distended Auscultation: normal bowel sounds Other: Incisions - CDI Extrem: General: normal to inspection, no pedal edema and no calf tenderness WOOD V[employer]ER TAPER - PN: Obj Data Vital Signs Vital Signs: Vital Signs - 24 hr 01/09/24 09:05 01/09/24 09:15 01/09/24 09:30 Temperature 97.3 F L Pulse Rate 70 70 66 Respiratory Rate 16 12 14 Blood Pressure 119/63 107/75 119/80 Pulse Oximetry 100 100 100 Oxygen Delivery Simple Face Mask Simple Face Mask Room Air Oxygen Flow Rate 10 10 01/09/24 09:45 01/09/24 10:00 01/09/24 10:14 Temperature Pulse Rate 76 80 86 Respiratory Rate 12 15 12 Blood Pressure 114/62 110/60 107/73 Pulse Oximetry 97 98 100 Oxygen Delivery Room Air Room Air Room Air Oxygen Flow Rate 01/09/24 10:30 01/09/24 10:40 01/09/24 15:00 Temperature 97.2 F L 98.5 F Pulse Rate 68 70 Respiratory Rate 16 14 Blood Pressure 111/59 L 91/52 L Pulse Oximetry 100 98 Oxygen Delivery Room Air Oxygen Flow Rate 01/09/24 15:00 01/09/24 17:40 01/09/24 19:04 Temperature 98.4 F Pulse Rate 71 Respiratory Rate 16 Blood Pressure 93/51 L 99/62 L Pulse Oximetry 98 Oxygen Delivery Room Air Oxygen Flow Rate 01/10/24 00:08 Temperature 98.4 F Pulse Rate 78 Respiratory Rate 18 Blood Pressure 92/62 L Pulse Oximetry 99 Oxygen Delivery Oxygen Flow Rate Intake/Output Intake/Output: Intake & Output 01/07/24 01/08/24 01/09/24 01/10/24 23:59 23:59 23:59 23:59 Intake Total 990 700 Output Total 1450 250 Balance -460 450 Meds/Results Medications: Active Medications Generic Name Dose Route Start Last Admin Trade Name Freq PRN Reason Stop Dose Admin Hydrocodone Bitart/Acetaminophen 1 tab 01/09/24 10:15 01/10/24 04:55 Hydrocodone/Acetaminophen (*Crx) 5-325 Mg Tablet PO 1 tab Q3H PRN Administration Pain Rated 5 or Less Hydrocodone Bitart/Acetaminophen 1 tab 01/09/24 10:15 Hydrocodone/Acetaminophen (*Crx) 10-325 Mg Tablet PO Q3H PRN Pain Rated 6 or Greater Dextrose/Sodium Chloride 1,000 mls @ 125 mls/hr 01/09/24 10:15 01/09/24 10:52 Dextrose 5% Sodium Chloride 0.45% IV CONT 125 mls/hr .Q8H JAIRO Administration Ibuprofen 600 mg 01/09/24 10:15 01/10/24 07:34 Ibuprofen 600 Mg Tablet PO 600 mg Q6H PRN Administration Cramping Ketorolac Tromethamine 30 mg 01/09/24 10:15 01/09/24 17:45 Ketorolac 30 Mg/Ml Vial (*Bkc) IV PUSH 01/14/24 10:14 30 mg Q6H PRN Administration Pain Rated 4-6 Naloxone HCl 0.1 mg 01/09/24 10:15 Naloxone Hcl 0.4 Mg/Ml Vial IV PUSH Q2M PRN Respiratory rate less than 10 Ondansetron HCl 4 mg 01/09/24 10:15 Ondansetron Inj 4 Mg/2 Ml Vial IV PUSH Q6H PRN Nausea And Vomiting Sertraline HCl 50 mg 01/10/24 09:00 Sertraline Hcl 50 Mg Tablet PO DAILY JAIRO Simethicone 80 mg 01/09/24 12:00 01/10/24 07:34 Simethicone 80 Mg Tab.Chew PO 80 mg TIDWM JAIRO Administration
[2024-01-10 08:50] VITALS: BP 103/52; PULSE 79; RESP 18; TEMP 36.2; O2SAT 100
[2024-01-10] MEDS: SERTRALINE HCL 50 MG TABLET PO (09:07)
== END 2024-01-10 12:55 | disposition home or self-care (01) ==
LOC: ANHSURGERY 05:47 → ANHOB2 10:25
PROVIDERS: Visit Provider Obstetrics & Gynecology
PROC: 0UT9FZZ Resection of Uterus, Via Natural or Artificial Opening With Percutaneous Endoscopic Assistance (ICD-10-PCS; CPT 58571; principal; 2024-01-09 07:30)
DX: D25.9 Leiomyoma of uterus, unspecified (principal); N92.0 Excessive and frequent menstruation with regular cycle; N88.8 Other specified noninflammatory disorders of cervix uteri; N84.0 Polyp of corpus uteri; F41.9 Anxiety disorder, unspecified; E66.9 Obesity, unspecified; Z68.39 Body mass index [BMI] 39.0-39.9, adult
CPT/HCPCS: 58571; 88307; 99199; A9270; J0690; J1100; J1170; J1885; J2250; J2405; J2704; J3010; J7030; J7120; Q9968

== ENCOUNTER 2024-02-22 17:53 | Emergency (ER) | payer OTHER, SELFPAY ==
--- NOTE | ~2024-02-22 | XR_ITS ---
XR chest 2V Ordering provider: Ana Maria Anderson MD History: 33 years Female with . chest pain . Comparison: June 29, 2023 FINDINGS: MEDIASTINUM: The cardiac silhouette is not enlarged. LUNGS: No infiltrates, effusions or pneumothorax. OTHER: No free air under the diaphragm. IMPRESSION: No acute cardiopulmonary pathology. Reviewed, dictated and finalized at location A.
--- NOTE | 2024-02-22 17:59 | ECG_ITS ---
Test Date: 2024-02-22 18:03:20 Measurements Intervals [place] Rate: 83 P: 24 [place]: 126 QRS: 19 QRSD: 82 T: 34 QT: 374 QTc: 440 Interpretive Statements SINUS RHYTHM No previous ECG available for comparison Electronically Signed On 02-24-2024 13:21:48 CDT by Vicente Mckenzie M.D.
[2024-02-22 18:06] VITALS: BP 124/73; PULSE 83; RESP 16; TEMP 36.6; O2SAT 100
[2024-02-22 18:50] VITALS: BP 122/69; PULSE 80; RESP 18; O2SAT 98
[2024-02-22] MEDS: ASPIRIN 81 MG CHEWABLE TABLET 324 MG PO (19:14)
[2024-02-22 19:23] VITALS: PULSE 87; O2SAT 100
[2024-02-22 19:29] LABS: Basophils Absolute Auto 0.1 K/mm3 (0.0-0.1); Basophils Percent Auto 0.8 % (0.2-1.2); Eosinophils Absolute Auto 0.2 K/mm3 (0-0.3); Eosinophils Percent Auto 1.6 % (0-4.4); Hematocrit 38.3 % (37.0-47.0); Hemoglobin 12.4 g/dL (12.0-15.0); Immature Granulocyte Absolute 0.24 K/mm3 (0.00-0.031); Immature Granulocyte Percent A 1.9 % (0-0.5); Lymphocytes Absolute Auto 4.23 K/mm3 (0.9-3.2); Lymphocytes Percent Auto 32.9 % (18.3-44.2); Mean Corpuscular HGB Conc 32.4 g/dl (32-36); Mean Corpuscular Hemoglobin 28.1 pg (26-34); Mean Corpuscular Volume 86.8 fl (80-100); Monocytes Absolute Auto 0.9 K/mm3 (0.1-0.6); Monocytes Percent Auto 6.6 % (2.6-8.5); Neutrophils Absolute Auto 7.2 K/mm3 (1.3-6.7); Neutrophils Percent Auto 56.2 % (45.5-73.1); Platelet Count Result 357 k/mm3 (150-375); Red Blood Count 4.41 M/mm3 (4.2-5.4); White Blood Count 12.8 K/mm3 (4.5-10.0)
[2024-02-22 19:43] LABS: Alanine Aminotransferase 16 U/L (6-35); Alkaline Phosphatase 57 U/L (38-126); Anion Gap 7 mmol/L (4-12); Aspartate Amino Transferase 22 U/L (14-36); Bilirubin,Total 0.2 mg/dL (0.2-1.3); Blood Urea Nitrogen 13 mg/dL (7-17); Calcium 8.6 mg/dL (8.4-10.2); Carbon Dioxide 25 mmol/L (22-30); Chloride 105 mmol/L (98-107); Estimated CRCL calculation 98 ml/min; Estimated Glomerular Filt Rate > 60; Glucose 94 mg/dL (65-110); Lipase 161 U/L (23-300); Potassium 4.4 mmol/L (3.4-5.0); Sodium 137 mmol/L (137-145)
--- NOTE | 2024-02-22 19:48 | ED.CHESTPAIN ---
HPI - Chest Pain General Chief Complaint: Chest Pain Stated Complaint: CHEST PAIN Time Seen by Provider: 02/22/24 18:26 History of Present Illness HPI narrative: This is a 33-year-old female with a past medical history significant for recent laparoscopic hysterectomy 7 weeks prior. She presents today with chief complaint of chest fluttering, chest pressure sensations associated difficulty in breathing. Denies any history of PE, DVT. There noticed any cardiac history in the past. Was otherwise in her normal state of health and denies any chance of presently. Denies any abdominal pain, vomiting, diarrhea, fever, chills. No other recent procedures or illnesses, injuries. Related Data Home Medications Medication Instructions Recorded Confirmed sertraline 50 mg tablet 50 mg PO DAILY 01/02/24 01/09/24 Allergies Allergy/AdvReac Type Severity Reaction Status Date / Time No Known Allergies Allergy Verified 01/09/24 06:13 Review of Systems Review of Systems: As reviewed [facility] in [facility]PI [facility] Past Medical History Medical History Anxiety Obesity (BMI 30-39.9) Surgical History Surgical History No pertinent past surgical history Family History Family History Sibling Hydronephrosis Social History Social History Smoking status: Never smoker Substance use: never Lack of Transportation: No Lack of Food: Never True Current Housing: I Have Housing Concerned About Future Housing: No Difficulty Paying Gas/Electric Bills: YES Difficulty Paying for Meds: No Currently Unemployed: No Education: High School Diploma/GED Difficulty w/ Childcare or Family Care: No Spiritual care concerns: No Exam Narrative: GENERAL: [Well-appearing, well-nourished, and in no acute distress.] HEAD: [Normocephalic, atraumatic.] EYES: [PERRLA and EOMI.] ENT: Nares clear, no rhinorrhea or epistaxis. Mucous membranes moist. NECK: Supple. CHEST: [Clear to auscultation. No respiratory distress.] HEART: [Regular rate and rhythm]. No murmur heard. [Normal peripheral pulses.] ABDOMEN: [Soft, nondistended], [nontender], [No rigidity or guarding] EXTREMITIES: Normal range of motion. [No edema.] SKIN: Warm, dry, no rash. NEURO: [No focal deficits]. Alert and oriented [x3.] PSYCH: [Normal mood and affect.] Course Vital Signs Vital signs: Vital Signs Temperature 36.6 C 02/22/24 18:06 Pulse Rate 83 02/22/24 18:06 Respiratory Rate 16 02/22/24 18:06 Blood Pressure 124/73 02/22/24 18:06 Pulse Oximetry 100 02/22/24 18:06 Oxygen Delivery Room Air 02/22/24 18:06 Temperature 36.6 C 02/22/24 18:06 Pulse Rate 79 02/22/24 21:20 Respiratory Rate 14 02/22/24 21:20 Blood Pressure 143/87 H 02/22/24 21:20 Pulse Oximetry 99 02/22/24 21:20 Oxygen Delivery Room Air 02/22/24 19:23 MDM - Chest Pain MDM Narrative Medical decision making narrative: This is a 33-year-old female with a past medical history significant for recent laparoscopic hysterectomy several weeks prior. She states that she has had some fluttering in her chest described as a rapid heart rate and difficulty in breathing recently. She states today she started waking up with substernal chest pain that is worse with specific movements. He denies any injuries or traumas. She has normal reassuring vital signs without any tachycardia, hypoxia, fever. Differential diagnosis at this time includes musculoskeletal chest pain, ACS, atypical chest pain, pleurisy, less likely PE. She does have a high risk factor being recent surgery so we did elect to order a D-dimer in addition to CBC, CMP, serial troponins and x-ray an EKG. She was treated with Toradol 15 mg as well as
[2024-02-22 19:50] LABS: Troponin I < 0.012 ng/mL (0.000-0.034)
[2024-02-22] MEDS: KETOROLAC 15 MG/ML VIAL (*BKC) IV PUSH (19:56)
[2024-02-22 20:00] LABS: Prothrombin Time 13.6 Seconds (11.1-14.7)
[2024-02-22 20:01] LABS: Partial Thromboplastin Time 29.9 Seconds (22.3-36.8)
[2024-02-22 20:17] LABS: D Dimer 0.49 ug/mL (<0.48)
[2024-02-22 21:20] VITALS: BP 143/87; PULSE 79; RESP 14; O2SAT 99
[2024-02-22 21:47] LABS: Troponin I < 0.012 ng/mL (0.000-0.034)
== END 2024-02-22 22:03 | disposition home or self-care (01) ==
PROVIDERS: Emergency Medicine; Emergency Provider Student in an Organized Health Care Education/Training Program
DX: R07.89 Other chest pain (principal)
CPT/HCPCS: 36415; 71046; 80053; 83690; 84484; 85025; 85380; 85610; 85730; 93005; 96374; 99284; A9270; J1885

== ENCOUNTER 2024-05-16 19:08 | Emergency (ER) | payer OTHER, SELFPAY ==
--- NOTE | ~2024-05-16 | XR_ITS ---
XR chest 2V Ordering provider: Elmer Brownlee APRN History: 33 years Female with . cough x 5 days exposed to smoker . Comparison: February 22, 2024 FINDINGS: MEDIASTINUM: The cardiac silhouette is not enlarged. LUNGS: No effusions or pneumothorax. Opacification in the right lower lobe is noted suggestive of pne umonia. OTHER: No free air under the diaphragm. IMPRESSION: Right lower lobe pneumonia. Reviewed, dictated and finalized at location A. IMPRESSION: Right lower lobe pneumonia.
--- NOTE | 2024-05-16 19:09 | ED.URI ---
HPI - URI/Sore Throat General Chief Complaint: Upper Respiratory Infection Stated Complaint: cough, heavy Breathing Time Seen by Provider: 05/16/24 19:09 Source: patient Mode of arrival: ambulatory Limitations: no limitations History of Present Illness HPI Narrative: Rea is a 33-year-old female patient presenting to the clinic today with complaints of a productive cough, chest congestion, and heavy breathing x5 days. She reports she denies any fever chills, body aches, or chest pain. MD elicited complaint: cough, nasal congestion and other (Shortness breath) Related Data Home Medications Medication Instructions Recorded Confirmed sertraline 50 mg tablet 50 mg PO DAILY 01/02/24 05/16/24 Allergies Allergy/AdvReac Type Severity Reaction Status Date / Time No Known Allergies Allergy Verified 01/09/24 06:13 Review of Systems Review of Systems: Pertinent positives per HPI. Patient denies any fever, chills, rash, headache, visual changes, dizziness, sore throat, chest pain, palpitations, nausea, vomiting, diarrhea, constipation, abdominal pain, or any urinary issues. [facility] Past Medical History Medical History Anxiety Obesity (BMI 30-39.9) Surgical History Surgical History No pertinent past surgical history Family History Family History Sibling Hydronephrosis Social History Social History Smoking status: Never smoker Substance use: never Lack of Transportation: No Lack of Food: Never True Current Housing: I Have Housing Concerned About Future Housing: No Difficulty Paying Gas/Electric Bills: YES Difficulty Paying for Meds: No Currently Unemployed: No Education: High School Diploma/GED Difficulty w/ Childcare or Family Care: No Spiritual care concerns: No Comments At the time of my signature, I reviewed and agree with the nursing past medical, surgical, social, and family history. There is no relevant family history pertinent to the patient complaint. Exam Narrative: General: Well-developed, obese, in no apparent distress Head: Normocephalic, atraumatic Eyes: Pupils equally round and reactive to light bilaterally, EOM intact, sclera and conjunctive clear, no discharge, lids normal Ears: TMs intact and clear, ear canals clear, no drainage, grossly hearing normal. Nose: Nares patent, clear nasal discharge, no inflammation, no sinus tenderness. Mouth: Oropharynx without lesions or masses, good dentition, MMM. Neck: Supple, trachea midline, no enlargement of anterior or posterior cervical nodes, no thyroid masses or goiter palpable. Cardio: Regular rate and rhythm, s1 and s2 normal, no murmur appreciated. Resp: Diminished in the bases, no rhonchi, rales, wheezing or rubs Course Course Emergency Course: Portions of this record may have been created with voice recognition software. Level of Care: Express Care Visit Vital Signs Vital signs: Vital signs reviewed MDM - URI/Sore Throat MDM Narrative Medical decision making narrative: At the time of visit patient is resting comfortably on the exam table. Patient appears to be nontoxic. Labs: COVID and influenza testing was negative in the clinic today. Diagnostics: Chest x-rays shows right lower lobe pneumonia Plan: I suspect patient has right lower lobe pneumonia. Prescription for azithromycin, Augmentin, and albuterol inhaler was sent to the pharmacy. Supportive measures were discussed with the patient and they voiced understanding discharge instructions and agrees to treatment plan. Return precautions reviewed Differential Diagnosis Differential diagnosis: Likely upper respiratory infection, otitis media, sinusitis, viral infection, bronchitis, influenza, pharyngitis and other (COVID) Imaging Data Radiologist's impression: ITS Impressions Chest X-Ray 05/16/24 20:04 IMPRESSION: Right lower lobe pneumonia. Discharge Plan Discharge Clinical Impression: Right lower lobe pneumonia Qualifiers: Pneumonia type: due to unspecified organism Qualified Code(s): J18.9 - Pneumonia, unspecified organism Patient Disposition: Home, Self-Care Condition: Stable Instructions: Antibiotic Form, Pneumonia (ED) Additional Instructions: COVID and influenza testing was negative in the clinic today. Chest x-ray shows right lower lobe pneumonia. Take medications as prescribed-albuterol inhaler, Augmentin, and azithromycin Increase fluids and stay well hydrated Tylenol/motrin for pain/fever Flonase and OTC antihistamines as directed Vicks vapor rub to open sinuses Sinus rinses for congestion Cepacol spray, cough drops, throat lozenges, warm tea with honey/lemon, gargle salt water to soothe throat BRAT diet for diarrhea Clear liquids x 24 hours then advance as tolerated for nausea/vomiting Go to the ED if you develop a worsening in your condition- high fever not controlled by Tylenol or Motrin, dehydration, weakness, lethargy, shortness of breath, or chest pain. Follow up with your PCP in 3-5 days if symptoms persist. Prescriptions: New azithromycin 250 mg tablet See Rx Instructions .ROUTE .COMPLEX Qty: 6 0RF Rx Instructions: For 250 mg dose pack: take 500 mg today (day 1), then 250 mg for 4 days (days 2-5) albuterol sulfate 90 mcg/actuation HFA aerosol inhaler 2 puff inhalation Q4-6H PRN (Reason: shortness of breath or wheezing) 30 Days Qty: 8.5 0RF amoxicillin-pot clavulanate 875-125 mg tablet 1 tablet PO Q12H 7 Days Qty: 14 0RF No Action sertraline 50 mg tablet 50 mg PO DAILY Follow-up/Referrals: PHYSICIAN,BOTTLE CAPPER [Primary Care Provider] - Time of Disposition: 20:21 Quality NIHSS Nursing Documentation ED NIHSS nursing documentation: reviewed/agree
[2024-05-16 19:26] VITALS: BP 124/83; PULSE 98; RESP 16; TEMP 36.6; O2SAT 99
[2024-05-16 19:50] LABS: EDCOVIDSCREEN Negative (Negative); EDINFLUASCREEN Negative (Negative); EDINFLUBSCREEN Negative (Negative)
== END 2024-05-16 20:29 | disposition home or self-care (01) ==
PROVIDERS: Emergency Provider Nurse Practitioner Family
DX: J18.1 Lobar pneumonia, unspecified organism (principal); Z20.822 Contact with and (suspected) exposure to COVID-19; F41.9 Anxiety disorder, unspecified; E66.9 Obesity, unspecified; Z68.41 Body mass index [BMI] 40.0-44.9, adult
CPT/HCPCS: 71046; 87426; 87804; 99213; G0463

== ENCOUNTER 2024-06-07 15:35 | Emergency (ER) | payer OTHER, SELFPAY ==
[2024-06-07 16:20] VITALS: PULSE 87; RESP 20; TEMP 36.4; O2SAT 100
--- NOTE | 2024-06-07 16:39 | ED.URI ---
HPI - URI/Sore Throat General Chief Complaint: Upper Respiratory Infection Stated Complaint: Sinus/SOB Time Seen by Provider: 06/07/24 16:23 Source: patient, RN notes reviewed and old records reviewed Mode of arrival: ambulatory Limitations: no limitations History of Present Illness HPI Narrative: Patient presents today complaining cough, shortness of breath. She was seen here at [facility] 3 weeks ago and diagnosed with right upper lobe pneumonia. She was subsequently prescribed Augmentin and azithromycin. She stopped the antibiotics after 2-3 doses due to diarrhea. States symptoms slightly improved, then worsened again. Denies any current fever. She is taking no grot-[id number]-[id number] medicine for symptoms. No history of asthma or COPD. She would like another course of antibiotics to treat her illness. Related Data Home Medications Medication Instructions Recorded Confirmed sertraline 50 mg tablet 50 mg PO DAILY 01/02/24 06/07/24 Allergies Allergy/AdvReac Type Severity Reaction Status Date / Time No Known Allergies Allergy Verified 06/07/24 16:19 Review of Systems Review of Systems: CONSTITUTIONAL: Denies body aches, fever, chills, or sweats. EYES: Denies visual changes, redness, or discharge. ENT: Denies rhinorrhea, congestion, sore throat, or otalgia. CARDIOVASCULAR: Denies chest pain, palpitations, or edema. RESPIRATORY: + cough, shortness of breath GASTROINTESTINAL: Denies abdominal pain, nausea, vomiting, or diarrhea. GENITOURINARY: Denies dysuria or hematuria. SKIN: Denies rash, itching, or wounds. MUSCULOSKELETAL: Denies back pain, joint pain, or myalgia. NEUROLOGIC: Denies headache, numbness, tingling, or weakness. PSYCH: Denies depression or anxiety. [facility] Past Medical History Medical History Anxiety Obesity (BMI 30-39.9) Surgical History Surgical History No pertinent past surgical history Family History Family History Sibling Hydronephrosis Social History Social History Smoking status: Never smoker Substance use: never Lack of Transportation: No Lack of Food: Never True Current Housing: I Have Housing Concerned About Future Housing: No Difficulty Paying Gas/Electric Bills: YES Difficulty Paying for Meds: No Currently Unemployed: No Education: High School Diploma/GED Difficulty w/ Childcare or Family Care: No Spiritual care concerns: No Comments At time of signature, I have reviewed and agree with nursing past medical, surgical, social and family history unless otherwise noted. Please see nursing chart for further information. There is no relevant family history pertinent to the presenting complaint Exam Narrative: GENERAL: Well-appearing, well-nourished, and in no acute distress. HEAD: Normocephalic, atraumatic. EYES: EOMI. No redness or drainage. Conjunctivae normal. ENT: Mucous membranes pink and moist. Nares clear. No rhinorrhea. TMs normal bilaterally. Throat normal. Uvula midline. NECK: Normal AROM. Supple. No lymphadenopathy. CHEST: No respiratory distress. Slight crackle in the right upper lobe, otherwise clear HEART: Regular rate and rhythm. No murmur appreciated. EXTREMITIES: Normal range of motion. No edema. SKIN: Warm, dry, no rash. Capillary refill normal. Normal skin turgor. NEURO: No focal deficits. Alert and oriented x3. Gait steady. PSYCH: Normal affect. No signs of depression or anxiety. Course Course Level of Care: Express Care Visit Vital Signs Vital signs: Vital Signs Temperature 97.6 F 06/07/24 16:20 Pulse Rate 87 06/07/24 16:20 Respiratory Rate 20 06/07/24 16:20 Pulse Oximetry 100 06/07/24 16:20 Oxygen Delivery Room Air 06/07/24 16:20 Temperature 97.6 F 06/07/24 16:20 Pulse Rate 87 06/07/24 16:20 Respiratory Rate 20 06/07/24 16:20 Blood Pressure 115/80 06/07/24 16:44 Pulse Oximetry 100 06/07/24 16:20 Oxygen Delivery Room Air 06/07/24 16:20 Reviewed MDM - URI/Sore Throat MDM Narrative Medical decision making narrative: Patient's exam suggests persistent pneumonia. She will be restarted on her medications as previously prescribed. Patient states she will complete these medications this time. Extensive discussion regarding antibiotics, probiotics, importance of completing antibiotics etc.. Anticipatory guidance given. Differential Diagnosis Differential diagnosis: Likely upper respiratory infection, viral infection, bronchitis and other (Pneumonia) Critical Care Time Critical Care Time Critical Care Time: No Discharge Plan Discharge Clinical Impression: Pneumonia Qualifiers: Pneumonia type: due to unspecified organism Laterality: right Lung location: upper lobe of lung Qualified Code(s): J18.9 - Pneumonia, unspecified organism Patient Disposition: Home, Self-Care Condition: Stable Instructions: Antibiotic Form, Community Acquired Pneumonia (DC) Additional Instructions: Please take the Augmentin and azithromycin as directed until gone. Consider starting a probiotic as this may help with your diarrhea. Take [id number] cough medicine if needed. Follow-up with your PCP in 3 days if symptoms are not improving. Go to the ER if symptoms worsen. Prescriptions: New azithromycin 250 mg tablet 250 mg PO DAILY Qty: 6 0RF Rx Instructions: take 500 mg today (day 1), then 250 mg daily on days 2-5. amoxicillin-pot clavulanate 875-125 mg tablet 1 tablet PO Q12H 5 Days Qty: 10 0RF No Action sertraline 50 mg tablet 50 mg PO DAILY Follow-up/Referrals: PHYSICIAN,PATIENT CARE SPECIALIST [Primary Care Provider] - Time of Disposition: 16:44
[2024-06-07 16:44] VITALS: BP 115/80
== END 2024-06-07 17:05 | disposition home or self-care (01) ==
PROVIDERS: Emergency Provider Nurse Practitioner
DX: J18.9 Pneumonia, unspecified organism (principal); F41.9 Anxiety disorder, unspecified; E66.9 Obesity, unspecified; Z68.41 Body mass index [BMI] 40.0-44.9, adult
CPT/HCPCS: 99213; G0463

== ENCOUNTER 2024-06-13 16:22 | Emergency (ER) | payer OTHER, SELFPAY ==
--- NOTE | ~2024-06-13 | XR_ITS ---
XR chest 2V Ordering provider: Michael Reid MD History: 33 years Female with . pneumonia on abx . Comparison: May 16, 2024 FINDINGS: MEDIASTINUM: The cardiac silhouette is not enlarged. LUNGS: No infiltrates, effusions or pneumothorax. Slightly prominent markings in the right lower lobe medially which may indicate residual pneumonia. Follow-up advised. OTHER: No free air under the diaphragm. IMPRESSION: Slightly prominent markings in the right lower lobe medially which may indicate residual pneumonia. F ollow-up advised. Reviewed, dictated and finalized at location A. OELECTRIC STATION OPERATOR CHIEF IMPRESSION: Slightly prominent markings in the right lower lobe medially which may indicate residual pneumonia. Follow-up advised.
[2024-06-13 16:32] VITALS: BP 124/78; PULSE 80; RESP 20; TEMP 36.6; O2SAT 100
--- NOTE | 2024-06-13 17:35 | ECG_ITS ---
Test Date: 2024-06-13 18:30:26 Measurements Intervals [place] Rate: 62 P: 14 MI: 132 QRS: 11 QRSD: 86 T: 8 QT: 441 QTc: 449 Interpretive Statements SINUS RHYTHM BORDERLINE ST-T WAVE ABNORMALITY- INFERIOR LEADS BORDERLINE ECG Compared to ECG 02/22/2024 18:03:20 No significant changes Electronically Signed On 06-13-2024 19:28:57 LE[employer] SPRINK[employer]ER by Michael Clemons D.O.
--- NOTE | 2024-06-13 17:42 | ED_ITS ---
HPI - SOB/Dyspnea General Chief Complaint: Shortness of Breath/Dyspnea Stated Complaint: Pneumonia 30 days ago. Finished abx yesterday Time Seen by Provider: 06/13/24 16:56 Source: patient Mode of arrival: ambulatory Limitations: no limitations History of Present Illness HPI Narrative: Patient is a 33-year-old female who presents the ED with report of shortness of breath. Patient reports she was diagnosed with pneumonia around [facility]. She was prescribed antibiotics at that time, but stopped taking these as she states they made her sick. She was then diagnosed with pneumonia again last week at an urgent care. Rx'd azithromycin and amoxicillin. Is scheduled to finish these tomorrow. Reports she is still feeling shortness of breath. Worse with exertion. She reports midsternal chest pain, worse with coughing. Denies production of sputum. Denies fevers. Related Data Home Medications Medication Instructions Recorded Confirmed sertraline 50 mg tablet 50 mg PO DAILY 01/02/24 06/07/24 Allergies Allergy/AdvReac Type Severity Reaction Status Date / Time No Known Allergies Allergy Verified 06/13/24 16:22 Review of Systems Review of Systems: All systems reviewed & are unremarkable except as noted in HPI. All systems reviewed & are unremarkable except as noted in HPI and below PMFSH Past Medical History Medical History Anxiety Obesity (BMI 30-39.9) Surgical History Surgical History No pertinent past surgical history Family History Family History Sibling Hydronephrosis Social History Social History Smoking status: Never smoker Substance use: never Lack of Transportation: No Lack of Food: Never True Current Housing: I Have Housing Concerned About Future Housing: No Difficulty Paying Gas/Electric Bills: YES Difficulty Paying for Meds: No Currently Unemployed: No Education: High School Diploma/GED Difficulty w/ Childcare or Family Care: No Spiritual care concerns: No Exam Narrative: GENERAL: Well appearing, morbidly obese with BMI of 42.9, non-toxic, in no acute distress. HEAD: Normocephalic, atraumatic. RESPIRATORY: Airway patent, respirations nonlabored. Clear to auscultation bilaterally, no rales, rhonchi, wheezing. No significant focal lung sounds. CARDIOVASCULAR: Regular rate and rhythm without murmurs, rubs, or gallops. MUSCULOSKELETAL: Moves all extremities. No gross deformities. Mild tenderness to palpation over midsternal chest. SKIN: Warm, dry, normal color. NEURO: A&O X3. Speech clear. Cranial nerves II-XII grossly intact. Steady gait. No ataxic movements. PSYCHIATRIC: Appropriate mood and affect. Normal interaction. Course Vital Signs Vital signs: Vital Signs Temperature 97.8 F 06/13/24 16:32 Pulse Rate 80 06/13/24 16:32 Respiratory Rate 20 06/13/24 16:32 Blood Pressure 124/78 06/13/24 16:32 Pulse Oximetry 100 06/13/24 16:32 Oxygen Delivery Room Air 06/13/24 16:32 Temperature 97.9 F 06/13/24 18:49 Pulse Rate 71 06/13/24 20:31 Respiratory Rate 16 06/13/24 20:31 Blood Pressure 138/74 06/13/24 20:31 Pulse Oximetry 98 06/13/24 20:31 Oxygen Delivery Room Air 06/13/24 16:32 MDM - SOB/Dyspnea MDM Narrative Medical decision making narrative: Patient presented to ED with persistent shortness of breath, recent diagnosis of pneumonia, has since finished two oral antibiotics. VSS upon arrival. Patient is afebrile. Chest x-ray with likely residual pneumonia in right lower lobe. CBC with white blood cell count of 11.8. CMP is unremarkable. D-dimer is within normal range. EKG is nonischemic. Troponin undetectable. Suspect more musculoskeletal etiology/pleurisy/costochondritis regarding chest pain. Patient does have reproducible chest wall tenderness on exam. Discussed lab and imaging findings with patient. Discussed admission for IV antibiotics for further treatment of pneumonia versus discharge on different oral antibiotics. Utilize shared decision-making with patient. She has remained stable throughout ED stay. Vital signs are stable. No evidence of hemodynamic instability. Patient would prefer to go home. She feels comfortable going home on oral antibiotics. Discussed the having close follow- up with PCP for further evaluation and to ensure resolution of symptoms. Discussed strict return precautions. Patient voiced understanding. She feels comfortable going home. Discharged in stable condition. Medical Records Attestation: I reviewed the patient's medical records. Lab Data Attestation: I reviewed the patient's lab results. 06/13/24 18:37 06/13/24 18:37 Labs: Lab Results 06/13/24 Range/Units 18:37 WBC 11.8 H (4.5-10.0) K/mm3 RBC 4.79 (4.2-5.4) M/mm3 Hgb 13.5 (12.0-15.0) g/dL Hct 41.1 (37.0-47.0) % MCV 85.8 (80-100) fl MCH 28.2 (26-34) pg MCHC 32.8 (32-36) g/dl RDW 13.3 (11.5-14.5) % Plt Count 363 (150-375) k/mm3 MPV 9.9 (7.4-10.4) fl Immature Gran % (Auto) 0.7 H (0-0.5) % Neut % (Auto) 56.0 (45.5-73.1) % Lymph % (Auto) 34.9 (18.3-44.2) % [place] % (Auto) 5.4 (2.6-8.5) % Eos % (Auto) 2.1 (0-4.4) % Baso % (Auto) 0.9 (0.2-1.2) % Lymph # (Auto) 4.12 H (0.9-3.2) K/mm3 [place] # (Auto) 0.6 (0.1-0.6) K/mm3 Eos # (Auto) 0.3 (0-0.3) K/mm3 Baso # (Auto) 0.1 (0.0-0.1) K/mm3 Abs Immat Gran (auto) 0.08 H (0.00-0.031) K/mm3 Absolute Neuts (auto) 6.6 (1.3-6.7) K/mm3 Absolute Nucleated RBC 0.000 (0.0-0.012) K/mm3 Nucleated RBC % 0.0 (0.0-0.2) % PT 13.5 (11.1-14.7) Seconds INR 1.0 APTT 29.9 (22.3-36.8) Seconds D-Dimer 0.40 (<0.48) ug/mL Sodium 139 (137-145) mmol/L Potassium 4.6 (3.4-5.0) mmol/L Chloride 103 (98-107) mmol/L Carbon Dioxide 27 (22-30) mmol/L Anion Gap 9 (4-12) mmol/L BUN 10 (7-17) mg/dL Creatinine 0.70 (0.7-1.0) mg/dL Estim Creat Clear Calc 102 ml/min Estimated GFR > 60 (59 - ) Glucose 91 (65-110) mg/dL Calcium 9.0 (8.4-10.2) mg/dL Total Bilirubin 0.5 (0.2-1.3) mg/dL AST 25 (14-36) U/L ALT 18 (6-35) U/L Alkaline Phosphatase 65 (38-126) U/L Troponin I < 0.012 (0.000-0.034) ng/mL Total Protein 8.0 (6.3-8.2) g/dL Albumin 4.6 (3.5-5.1) g/dL Imaging Data Attestation: I personally reviewed and interpreted this imaging study as follows: Radiologist's impression: ITS Impressions Chest X-Ray 06/13/24 17:08 IMPRESSION: Slightly prominent markings in the right lower lobe medially which may indicate residual pneumonia. Follow-up advised. ECG Data EKG #1: Attestation: I personally reviewed and interpreted this ECG as follows: ECG completion date: 06/13/24 ECG completion time: 18:30 EKG Interpretation: normal rate (62), sinus rhythm and non-specific ST changes Discharge Plan Discharge Clinical Impression: Pneumonia Qualifiers: Pneumonia type: due to unspecified organism Laterality: right Lung location: lower lobe of lung Qualified Code(s): J18.9 - Pneumonia, unspecified organism Patient Disposition: Home, Self-Care Condition: Stable Instructions: Antibiotic Form, Community Acquired Pneumonia (ED), Bacterial Pneumonia (ED) Additional Instructions: Take antibiotics as prescribed. Stay well hydrated. Continue [id number] cough and cold medicines as needed for symptom relief. Follow-up with primary care doctor for further evaluation and repeat chest imaging in the future. Return to the ED if you experience worsening or severe symptoms, severe difficulty breathing, chest pain, unable to keep down food or drink, or any other symptoms of concern. Prescriptions: New levofloxacin 750 mg tablet 750 mg PO DAILY 7 Days Qty: 7 0RF No Action azithromycin 250 mg tablet 250 mg PO DAILY Qty: 6 0RF Rx Instructions: take 500 mg today (day 1), then 250 mg daily on days 2-5. amoxicillin-pot clavulanate 875-125 mg tablet 1 tablet PO Q12H 5 Days Qty: 10 0RF sertraline 50 mg tablet 50 mg PO DAILY Follow-up/Referrals: PHYSICIAN,PROMOTIONAL ADVERTISING ASSISTANT [Primary Care Provider] - Time of Disposition: 20:04
[2024-06-13 18:00] VITALS: BP 126/76; PULSE 76; RESP 16; TEMP 36.6; O2SAT 100
[2024-06-13 18:42] LABS: Basophils Absolute Auto 0.1 K/mm3 (0.0-0.1); Basophils Percent Auto 0.9 % (0.2-1.2); Eosinophils Absolute Auto 0.3 K/mm3 (0-0.3); Eosinophils Percent Auto 2.1 % (0-4.4); Hematocrit 41.1 % (37.0-47.0); Hemoglobin 13.5 g/dL (12.0-15.0); Immature Granulocyte Absolute 0.08 K/mm3 (0.00-0.031); Immature Granulocyte Percent A 0.7 % (0-0.5); Lymphocytes Absolute Auto 4.12 K/mm3 (0.9-3.2); Lymphocytes Percent Auto 34.9 % (18.3-44.2); Mean Corpuscular HGB Conc 32.8 g/dl (32-36); Mean Corpuscular Hemoglobin 28.2 pg (26-34); Mean Corpuscular Volume 85.8 fl (80-100); Mean Platelet Volume 9.9 fl (7.4-10.4); Monocytes Absolute Auto 0.6 K/mm3 (0.1-0.6); Monocytes Percent Auto 5.4 % (2.6-8.5); Neutrophils Absolute Auto 6.6 K/mm3 (1.3-6.7); Platelet Count Result 363 k/mm3 (150-375); Red Blood Count 4.79 M/mm3 (4.2-5.4); Red Cell Distribution Width 13.3 % (11.5-14.5); White Blood Count 11.8 K/mm3 (4.5-10.0)
[2024-06-13 18:49] VITALS: BP 118/62; PULSE 76; RESP 16; TEMP 36.6; O2SAT 100
[2024-06-13 18:53] LABS: Alanine Aminotransferase 18 U/L (6-35); Albumin Level 4.6 g/dL (3.5-5.1); Alkaline Phosphatase 65 U/L (38-126); Anion Gap 9 mmol/L (4-12); Aspartate Amino Transferase 25 U/L (14-36); Bilirubin,Total 0.5 mg/dL (0.2-1.3); Blood Urea Nitrogen 10 mg/dL (7-17); Carbon Dioxide 27 mmol/L (22-30); Chloride 103 mmol/L (98-107); Estimated CRCL calculation 102 ml/min; Estimated Glomerular Filt Rate > 60; Glucose 91 mg/dL (65-110); Potassium 4.6 mmol/L (3.4-5.0); Sodium 139 mmol/L (137-145)
[2024-06-13 18:55] LABS: Prothrombin Time 13.5 Seconds (11.1-14.7)
[2024-06-13 18:56] LABS: Partial Thromboplastin Time 29.9 Seconds (22.3-36.8)
[2024-06-13 19:04] LABS: Troponin I < 0.012 ng/mL (0.000-0.034)
[2024-06-13 20:31] VITALS: BP 138/74; PULSE 71; RESP 16; O2SAT 98
== END 2024-06-13 20:34 | disposition home or self-care (01) ==
PROVIDERS: Emergency Provider Physician Assistant
DX: J18.9 Pneumonia, unspecified organism (principal); F41.9 Anxiety disorder, unspecified; E66.9 Obesity, unspecified; Z68.41 Body mass index [BMI] 40.0-44.9, adult
CPT/HCPCS: 36415; 71046; 80053; 84484; 85025; 85380; 85610; 85730; 93005; 99284

== ENCOUNTER 2024-06-21 22:17 | Emergency (ER) | payer OTHER, SELFPAY ==
--- NOTE | ~2024-06-21 | XR_ITS ---
EXAMINATION: XR chest 2V DATE: 06/22/2024 03:47 INDICATION: Cough. TECHNIQUE: Frontal and lateral views of the chest were obtained. COMPARISON: Chest 2 views 06/13/2024 FINDINGS: There is no pneumonia, pleural effusion, or pneumothorax. The heart size is normal. IMPRESSION: 1. No acute cardiopulmonary disease. Reviewed, dictated and finalized at location A. DISTRIBUTOR
[2024-06-21 22:34] VITALS: BP 139/72; PULSE 98; RESP 17; TEMP 36.4; O2SAT 99
[2024-06-22 01:57] VITALS: BP 128/82; PULSE 81; RESP 15; TEMP 37.1; O2SAT 100
[2024-06-22 05:16] VITALS: BP 118/68; PULSE 83; RESP 20; O2SAT 100
[2024-06-22 05:18] VITALS: O2SAT 100
--- NOTE | 2024-06-22 05:21 | PC.NURSE ---
Patient states she does not want any blood work or EKG at this time. ERP notified.
--- NOTE | 2024-06-22 05:43 | PC.NURSE ---
Patient ambulated with pulse ox, O2 maintained 95-96% on RA. ERP notified.
--- NOTE | 2024-06-22 05:48 | ED.GENADULT ---
HPI - General Adult General Chief complaint: Shortness of Breath/Dyspnea Stated complaint: sob,cp Time Seen by Provider: 06/22/24 05:18 History of Present Illness HPI narrative: This is a 33-year-old female presenting ED with chief complaint of dyspnea. Patient was diagnosed with pneumonia 1 month ago. She was treated with amoxicillin and azithromycin. However she did not feel she was getting better and was eventually treated with a course of Levaquin. Now the patient says she is improved but still has intermittent shortness of breath. she is concerned that she either still has pneumonia or that her anxiety is acting up. She stopped taking her anxiety medications when she started the antibiotics. At this time the patient is denying fevers chills chest pain difficulty breathing nausea vomiting or diarrhea. Related Data Home Medications Medication Instructions Recorded Confirmed sertraline 50 mg tablet 50 mg PO DAILY 01/02/24 06/07/24 Allergies Allergy/AdvReac Type Severity Reaction Status Date / Time No Known Allergies Allergy Verified 06/22/24 05:17 [facility] Past Medical History Medical History Anxiety Obesity (BMI 30-39.9) Surgical History Surgical History No pertinent past surgical history Family History Family History Sibling Hydronephrosis Social History Social History Smoking status: Never smoker Substance use: never Lack of Transportation: No Lack of Food: Never True Current Housing: I Have Housing Concerned About Future Housing: No Difficulty Paying Gas/Electric Bills: YES Difficulty Paying for Meds: No Currently Unemployed: No Education: High School Diploma/GED Difficulty w/ Childcare or Family Care: No Spiritual care concerns: No Exam Narrative: APPEARANCE: No apparent distress. Head: atraumatic. EYES: EOMI, NOSE: Atraumatic NECK: Trachea midline RESPIRATORY: No increased rate of breathing , clear to auscultation CARDIOVASCULAR: RRR, ABDOMINAL: Non-distended MUSCULOSKELETAl: No obvious deformities NEURO: Alert. Moving 4/4 extremities SKIN:: Warm, dry. Normal color PSYCHIATRIC: Normal affect Course Vital Signs Vital signs: Vital Signs Temperature 97.5 F L 06/21/24 22:34 Pulse Rate 98 06/21/24 22:34 Respiratory Rate 17 06/21/24 22:34 Blood Pressure 139/72 06/21/24 22:34 Pulse Oximetry 99 06/21/24 22:34 Oxygen Delivery Room Air 06/21/24 22:34 Temperature 98.8 F 06/22/24 01:57 Pulse Rate 83 06/22/24 05:16 Respiratory Rate 20 06/22/24 05:16 Blood Pressure 118/68 06/22/24 05:16 Pulse Oximetry 100 06/22/24 05:18 Oxygen Delivery Room Air 06/22/24 05:18 Medical Decision Making MDM Narrative Medical decision making narrative: This is a 33-year-old female w/ anxiety presenting ED with dyspnea. Patient is concerned that she still has pneumonia despite clinical improvement after taking antibiotics. Here she has stable vital signs. She has clear lungs. Well appearing on exam although anxious. Her chest x-ray without pneumonia. Performed ambulatory pulse ox which she passed with flying colors. Patient was reassured and discharged with primary care follow-up. Vital Signs Vital Signs: Vital Signs Temperature 97.5 F L 06/21/24 22:34 Pulse Rate 98 06/21/24 22:34 Respiratory Rate 17 06/21/24 22:34 Blood Pressure 139/72 06/21/24 22:34 Pulse Oximetry 99 06/21/24 22:34 Oxygen Delivery Room Air 06/21/24 22:34 Temperature 98.8 F 06/22/24 01:57 Pulse Rate 83 06/22/24 05:16 Respiratory Rate 20 06/22/24 05:16 Blood Pressure 118/68 06/22/24 05:16 Pulse Oximetry 100 06/22/24 05:18 Oxygen Delivery Room Air 06/22/24 05:18 Discharge Plan Discharge Clinical Impression: Anxiety, Cough Patient Disposition: Home, Self-Care Condition: Stable Instructions: Antibiotic Form, Acute Cough (ED) Additional Instructions: you were seen in the ED today for your cough. You appear much better and I think your pneumonia is resolving. Please follow-up with your primary care physician as needed. Please resume your anti anxiety medication. You can return any time if you develop worsening chest pain shortness of breath or would like re-evaluation. Prescriptions: No Action sertraline 50 mg tablet 50 mg PO DAILY Follow-up/Referrals: PHYSICIAN,[facility] [Primary Care Provider] -
== END 2024-06-22 06:09 | disposition home or self-care (01) ==
PROVIDERS: Emergency Provider Emergency Medicine
DX: R05.9 Cough, unspecified (principal); F41.9 Anxiety disorder, unspecified; E66.9 Obesity, unspecified; Z68.41 Body mass index [BMI] 40.0-44.9, adult; Z87.01 Personal history of pneumonia (recurrent); Z79.899 Other long term (current) drug therapy
CPT/HCPCS: 71046; 99283

== ENCOUNTER 2024-12-15 17:47 | Emergency (ER) | payer OTHER, SELFPAY ==
[2024-12-15 17:54] VITALS: BP 116/77; PULSE 84; RESP 16; TEMP 36.8; O2SAT 97
--- NOTE | 2024-12-15 18:10 | ED_ITS ---
HPI - Ear Problem General Chief complaint: Ear Stated complaint: Ears Irritation Time Seen by Provider: 12/15/24 18:00 Source: patient Mode of arrival: ambulatory Limitations: no limitations History of Present Illness HPI Narrative: Corky is a 34-year-old female patient presenting to the clinic today with complaints of bilateral ear pain/itching x1 month. States that she has pressure in the ears. Has had some nasal congestion. Denies any chest pain or shortness of breath. No known fever. Related Data Home Medications ?Medication ?Instructions ?Recorded ?Confirmed ?Last Taken ?Type sertraline 50 mg tablet 50 mg PO DAILY 01/02/24 06/07/24 12/26/23 History Allergies Allergy/AdvReac Type Severity Reaction Status Date / Time No Known Allergies Allergy Verified 12/15/24 18:36 Review of Systems Review of Systems: Pertinent positives per HPI. Patient denies any fever, chills, rash, headache, visual changes, dizziness, sore throat, shortness of breath, chest pain, palpitations, nausea, vomiting, diarrhea, constipation, abdominal pain, or any urinary issues. PMFSH Past Medical History Medical History Anxiety Obesity (BMI 30-39.9) Surgical History Surgical History No pertinent past surgical history Family History Family History Sibling Hydronephrosis Social History Social History Smoking status: Never smoker Substance use: never Lack of Transportation: No Lack of Food: Never True Current Housing: I Have Housing Concerned About Future Housing: No Difficulty Paying Gas/Electric Bills: YES Difficulty Paying for Meds: No Currently Unemployed: No Education: High School Diploma/GED Difficulty w/ Childcare or Family Care: No Spiritual care concerns: No Comments At the time of my signature, I reviewed and agree with the nursing past medical, surgical, social, and family history. There is no relevant family history pertinent to the patient complaint. Exam Narrative: General: Well-developed, well nourished, in no apparent distress Head: Normocephalic, atraumatic Eyes: Pupils equally round and reactive to light bilaterally, EOM intact, sclera and conjunctive clear, no discharge, lids normal Ears: TMs intact, bulging, fluid noted behind the TM ear canals clear, no drainage, grossly hearing normal. Nose: Nares patent, clear discharge, no inflammation, no sinus tenderness. Mouth: Oropharynx without lesions or masses, good dentition, MMM. Neck: Supple, trachea midline, no enlargement of anterior or posterior cervical nodes, no thyroid masses or goiter palpable. Cardio: Regular rate and rhythm, s1 and s2 normal, no murmur appreciated. Resp: Clear to auscultation bilaterally anteriorly and posteriorly, no rhonchi, rales, wheezing or rubs Course Course Emergency Course: Portions of this record may have been created with voice recognition software. Level of Care: Express Care Visit Vital Signs Vital signs: Vital Signs Temperature 36.8 C 12/15/24 17:54 Pulse Rate 84 12/15/24 17:54 Respiratory Rate 16 12/15/24 17:54 Blood Pressure 116/77 12/15/24 17:54 Pulse Oximetry 97 12/15/24 17:54 Oxygen Delivery Room Air 12/15/24 17:54 Temperature 36.8 C 12/15/24 17:54 Pulse Rate 84 12/15/24 17:54 Respiratory Rate 16 12/15/24 17:54 Blood Pressure 116/77 12/15/24 17:54 Pulse Oximetry 97 12/15/24 17:54 Oxygen Delivery Room Air 12/15/24 17:54 Vital signs reviewed Medical Decision Making MDM Narrative Medical decision making narrative: At the time of visit patient is resting comfortably on the exam table. Patient appears to be nontoxic. Plan: I suspect patient has bilateral serous otitis. Prescription for prednisone was sent to the pharmacy. Supportive measures were discussed with the patient and they voiced understanding discharge instructions and agrees to treatment plan. Return precautions reviewed Differential Diagnosis Differential Diagnosis: Otitis media, otitis externa, eustachian tube dysfunction, cerumen impaction, upper respiratory infection, serous otitis, cyst Vital Signs Vital Signs: Vital Signs Temperature 36.8 C 12/15/24 17:54 Pulse Rate 84 12/15/24 17:54 Respiratory Rate 16 12/15/24 17:54 Blood Pressure 116/77 12/15/24 17:54 Pulse Oximetry 97 12/15/24 17:54 Oxygen Delivery Room Air 12/15/24 17:54 Temperature 36.8 C 12/15/24 17:54 Pulse Rate 84 12/15/24 17:54 Respiratory Rate 16 12/15/24 17:54 Blood Pressure 116/77 12/15/24 17:54 Pulse Oximetry 97 12/15/24 17:54 Oxygen Delivery Room Air 12/15/24 17:54 Discharge Plan Discharge Clinical Impression: Bilateral acute serous otitis media Patient Disposition: Home Condition: Stable Instructions: Antibiotic Form, Fluid In The Ear (Serous Otitis Media) (ED) Additional Instructions: Take prescription medications only as prescribed-prednisone Increase fluids and stay well hydrated Tylenol/motrin for pain/fever Flonase and OTC antihistamines as directed Vicks vapor rub to open sinuses Sinus rinses for congestion Cepacol spray, cough drops, throat lozenges, warm tea with honey/lemon, gargle salt water to soothe throat BRAT diet for diarrhea Clear liquids x 24 hours then advance as tolerated for nausea/vomiting Go to the ED if you develop a worsening in your condition- high fever not controlled by Tylenol or Motrin, dehydration, weakness, lethargy, shortness of breath, or chest pain. Follow up with your PCP in 3-5 days if symptoms persist. Patient Language: Palestinian Prescriptions: New prednisone 20 mg tablet 40 mg PO DAILY 5 Days Qty: 10 0RF No Action sertraline 50 mg tablet 50 mg PO DAILY Follow-up/Referrals: Refugio Hill MD [Physician] - 1 Day (Serous otitis bilateral) Jin,Nishant Shetty MD [Primary Care Provider] - Time of Disposition: 18:11 Quality NIHSS Nursing Documentation ED NIHSS nursing documentation: reviewed/agree
== END 2024-12-15 18:35 | disposition home or self-care (01) ==
PROVIDERS: Emergency Provider Nurse Practitioner Family; PCP Internal Medicine Gastroenterology
DX: H65.03 Acute serous otitis media, bilateral (principal); E66.9 Obesity, unspecified; F41.9 Anxiety disorder, unspecified; Z68.41 Body mass index [BMI] 40.0-44.9, adult
CPT/HCPCS: 99213; G0463

== ENCOUNTER 2024-12-25 15:35 | Emergency (ER) | payer OTHER, SELFPAY ==
--- NOTE | ~2024-12-25 | XR_ITS ---
EXAMINATION: XR chest 2V 12/25/2024 16:16 INDICATION: Chest pain and shortness of breath PROCEDURE: 2 view chest COMPARISON: Comparison to multiple prior studies sequentially, with oldest reviewed study dated 03/2024. FINDINGS: The lungs are clear. The cardiomediastinal silhouette is within normal limits. There are no pleural effusions. There is no pneumothorax suspected. IMPRESSION: 1: NO ACUTE CARDIOPULMONARY DISEASE. Reviewed, dictated and finalized at location B.
--- NOTE | 2024-12-25 15:37 | ECG_ITS ---
Test Date: 2024-12-25 15:48:20 Measurements Intervals [place] Rate: 87 P: 15 CT: 126 QRS: 11 QRSD: 92 T: 42 QT: 365 QTc: 441 Interpretive Statements SINUS RHYTHM NORMAL ECG Compared to ECG 06/13/2024 18:30:26 NO SIGNIFICANT CHANGE Electronically Signed On 12-25-2024 16:30:21 CDT by Michael Clemons D.O.
[2024-12-25 15:39] VITALS: BP 141/83; PULSE 95; RESP 15; TEMP 36.6; O2SAT 95
[2024-12-25 15:45] VITALS: O2SAT 99
[2024-12-25 15:47] VITALS: PULSE 89
[2024-12-25 15:57] LABS: Basophils Absolute Auto 0.1 K/mm3 (0.0-0.1); Basophils Percent Auto 0.6 % (0.2-1.2); Eosinophils Absolute Auto 0.2 K/mm3 (0-0.3); Eosinophils Percent Auto 1.2 % (0-4.4); Hemoglobin 14.2 g/dL (12.0-15.0); Immature Granulocyte Absolute 0.29 K/mm3 (0.00-0.031); Immature Granulocyte Percent A 1.9 % (0-0.5); Lymphocytes Absolute Auto 4.53 K/mm3 (0.9-3.2); Lymphocytes Percent Auto 29.2 % (18.3-44.2); Mean Corpuscular HGB Conc 32.3 g/dl (32-36); Mean Corpuscular Hemoglobin 28.1 pg (26-34); Mean Corpuscular Volume 87.1 fl (80-100); Mean Platelet Volume 9.7 fl (7.4-10.4); Monocytes Absolute Auto 0.7 K/mm3 (0.1-0.6); Monocytes Percent Auto 4.6 % (2.6-8.5); Neutrophils Absolute Auto 9.7 K/mm3 (1.3-6.7); Neutrophils Percent Auto 62.5 % (45.5-73.1); Platelet Count Result 405 k/mm3 (150-375); Red Blood Count 5.05 M/mm3 (4.2-5.4); Red Cell Distribution Width 13.6 % (11.5-14.5); White Blood Count 15.5 K/mm3 (4.5-10.0)
--- OUTSIDE RECORDS SUMMARY | 2024-12-25 15:57 | XMS_ITS | Data Portability ---
Author Organization [facility] [place] Address [address] [place] [address] [place] [address] Care Team Providers Care Electric Meter Technician Name Role Phone BRITTANI MUELLER (FP) Primary Care Provider [phone] Assessment No assessment recorded. Plan of Treatment Reminders Order Date Submit Date Provider Last Modified By Organization Details Last Modified Time Details Appointments None recorded. Lab None recorded. Referral None recorded. Procedures None recorded. Surgeries None recorded. Imaging US, pelvis [address], [address], [address], [place], [address], 4 20:01:49 US, transvagina l [address] [facility] [place] [address], [place], [address], 4 20:01:49 Medication Orders None recorded. Patient TargetsNo targets recorded. Patient InstructionsNo instructions recorded. Reason for Referral None Reported. Results Created Date Observation Date Name Description Value Unit Range Abnormal Flag Note LastModifiedBy Organization Detail LastModifiedTime 01/03/20 24 01/03/2024 CULTU RE: URINE result report SEE RESULT S BELOW Test: Cultu re: Urine Speci men Sourc e: Urine - Clean Catch Speci men Type: Urine Speci men Date: 2023 5:08 PM Resul t Date: 2023 3:43 AM Resul t Statu s: Final resul t Abnor mal: No Resul ting Lab: [facility] [address] [facility] [address] Tel: [phone] CULTU RE ----- ----- ----- --- Cultu re resul t (>=3 organ isms prese nt) indic ates possi ble conta minat ion. Repea t cultu re if sympt oms indic ate. Not Available [facility] (Lab) [address], [place], [address], 01/05/2024 04:48:12 11/08/1911/07/2024 TSH TSH 0.99 uIU/m L 0.30-[address] [facility] (Lab) [address] [place], [address], 11/08/2024 06:59:54 11/08/1911/07/2024 T4 FREE T4, free 0.65 NG/dL 0.60-1 .40 This assay is susce ptibl e to inter feren ce from high level s of bioti n which may false ly eleva te resul ts. Pleas e corre late with clini radha findi ngs. Not Available [facility] (Lab) [address], [place], [address], 11/08/2024 06:59:54 11/08/1911/07/2024 HEMOG LOBIN A1C hemoglobin A1C 5.3 % 4.0-5. 6 The Ameri can Di[employer] teresa [employer] iatio n recom mends that a prima ry goal of thera py jez d be a HBA1C of < 7% and that physi cians shoul d reeva luate the treat ment regim en in patie nts with HBA1C value s consi stent ly > 8%. <5.7% Vannesa l 5.7 - 6.4% Incre ased risk for diabe teresa >=6.5 % Diagn ostic of diabe teresa <7.0% Goal of thera py >8.0% Actio n sugge sted Not Available [facility] (Lab) [address] [place], [address], 11/08/2024 06:59:54 11/01/19 24 11/01/2023 US, pelvi s No observ ation record ed. [email or web address] [place] [address], [place], [address], 11/01/2023 16:52:30 11/01/19 24 11/01/2023 US, trans vagin al No observ ation record ed. [email or web address] [place] [address], [place], [address], 11/01/2023 16:52:21 11/01/19 24 11/01/2023 US, pelvi s No observ ation record ed. [email or web address] [address], [place], [address], 11/06/2023 17:41:40 Result Notes None recorded. Problems Name Problem SNOMED Code Status Onset Date Resolution Date Notes Provider Name and Address Organization Details Recorded Time Pregnanc y 68562131 Completed 202203/02/2023 Maria E abdi, [facility] 3 11:43:33 Anxiety 53599228 Completed not trxed - to start sertrali ne Maria E Bella [facility] 3 11:43:27 Hyperthy roidism 01539890 Completed 2022 50mcg synthroi d; 11/16/22 WNL- pt stopped medicati on Lucie Powers MD [address], [place], [address], [place] [facility] 3 16:19:44 Anxiety 20798677 Active not trxed - to start sertrali ne Maria E abdi, [facility] 3 11:43:27 Anemia 791002931 Active oral iron Maria E Bella [facility], [facility] 3 11:43:27 Maternal obesity complica ting pregnanc y, childbir th and the puerperi um, antepart um 3926933628 07 Completed BMI 39- ante testing 37w Maria E abdi, [facility] 3 11:43:26 Insuffic ient weight gain of pregnanc y 91357812 Completed down 11# at 30w- growth Maria E Bella [facility], [facility] 3 11:43:27 Anemia 599375428 Completed oral iron Odessatatiana MckeonJena [facility], [facility] 3 11:43:27 Hypothyr oidism 55039194 Active 50mcg synthroi d; 11/16/22 WNL- pt stopped medicati on David Glover MD [address], [place], [address], [facility] 3 16:35:53 Hypothyr oidism 30073727 Completed 50mcg synthroi d; 11/16/22 WNL- pt stopped medicati on David Glover MD [address], [place], [address], [facility] 3 16:35:53 Female steriliz ation Completed Luciachristophertatiana Fryele [facility], [facility] 3 11:43:27 Gynecolo gic examinat ion Active 2023 Diana Renae [facility], [facility] 4 12:33:08 Problem Notes None recorded. Procedures Surgical History Date Name Laterality Status Provider Name and Address Organization Details Recorded Time 01/09/20 24 TOTAL HYSTERECTOMY, LAPAROSCOPIC, WITH BILATERAL SALPINGECTOMY (SURG) completed Cleve Azevedo [facility] 01/09/2024 14:52:31 05/23/20 22 Date of Last Pap Smear completed Alina [facility] 07/26/2022 17:38:06 07/16/19 19 Colposcopy completed Marta Eng [facility] 01/31/2023 09:19:42 07/16/19 19 Colposcopy completed Alina [facility] 09/11/2022 12:07:38 Imaging Results None recorded. Procedure Notes None recorded. Medical Equipment None Reported. Allergies No known drug allergies Medications Name Sig Start Date Stop Date Status Note LastModified by Organization Details LastModified Time cetirizine 10 mg tablet TAKE 1 TABLET BY MOUTH DAILY active Not Available Not Available No t Available azithromyci n 250 mg tablet TAKE 1 TABLET BY MOUTH DAILY active Not Available Not Available No t Available promethazin e 12.5 mg tablet TAKE 1 TABLET BY MOUTH EVERY 6 HOURS NEEDED FORNAUSEA AND VOMITING 01/24 completed Not Available Not Available Not Available ondansetron 8 mg disintegrat ing tablet Place 1 tablet twice a day by transling ual route. 01/24 completed Not Available Not Available Not Available oxycodone-a cetaminophe n 5 mg-325 mg tablet TAKE 1 TABLET BY MOUTH EVERY 4 HOURS NEEDED FOR PAIN 01/23 completed Not Available Not Available Not Available phenazopyri dine 100 mg tablet TAKE 1 TABLET BY MOUTH THREE TIMES DAILY FOR 3 DAYS NEEDED 11/11 completed Not Available Not Available Not Available levothyroxi ne 50 mcg tablet TAKE 1 TABLET BY MOUTH EVERY DAY 01/24 completed Not Available Not Available Not Available cephalexin 500 mg capsule TAKE ONE CAPSULE BY MOUTH EVERY 6 HOURS 09/11 completed Not Available Not Available Not Available sertraline 25 mg tablet TAKE 1 TABLET BY MOUTH DAILY 03/16 completed Not Available Not Available Not Available ibuprofen 600 mg tablet TAKE 1 TABLET BY MOUTH EVERY 6 HOURS NEEDED FOR CRAMPING 03/16 completed Not Available Not Available Not Available levofloxaci n 750 mg tablet TAKE 1 TABLET BY MOUTH DAILY FOR 7 DAYS active Not Available Not Available No t Available methylpredn isolone 4 mg tablets in a dose pack FOLLOW PACKAGE DIRECTION S 10/19 completed Not Available Not Available Not Available albuterol sulfate HFA 90 mcg/actuati on aerosol inhaler INHALE 2 PUFFS INTO LUNGS EVERY 4 TO 6 HOURS NEEDED FOR SHORTNESS OF BREATH OR WHEEZING active Not Available Not Available No t Available sertraline 50 mg tablet TAKE 1 TABLET BY MOUTH EVERY DAY 2024 active Not Available Not Available Not Avai lable amoxicillin 875 mg-potassiu m clavulanate 125 mg tablet TAKE 1 TABLET BY MOUTH EVERY 12 HOURS FOR 5 DAYS active Not Available Not Available No t Available neomycin-po lymyxin-hyd rocort 3.5 mg-10,000 unit/mL-1 % ear drops,susp SHAKE LIQUID AND INSTILL 2 DROPS IN BOTH EARS FOUR TIMES DAILY 11/11 completed Not Available Not Available Not Available nitrofurant oin monohydrate /macrocryst als 100 mg capsule Take 1 capsule every 12 hours by oral route with meal(s) for 7 days. 11/11 completed Not Available Not Available Not Available Xulane 150 mcg-35 mcg/24 hr transdermal patch APPLY 1 PATCH TOPICALLY TO THE SKIN EVERY WEEK 08/09 completed Not Available Not Available Not Available Vitals Date Recorded Body height Body mass index (BMI) Body weight Systolic blood pressure Diastolic blood pressure Provider Name and Address Organization Details Last Updated DateTime 11/12/2023 152.4 cm 38.9 kg/m2 00845.88 g 114 mm[Hg] 75 mm[Hg] Catalina Sanches [facility] 4 11:06:18 Date Recorded Body height Body mass index (BMI) Body weight Systolic blood pressure Diastolic blood pressure Provider Name and Address Organization Details Last Updated DateTime 01/03/2024 152.4 cm 39.5 kg/m2 93392.66 g 105 mm[Hg] 79 mm[Hg] Diana Renae [facility] 4 12:28:32 Date Recorded Body height Body mass index (BMI) Body weight Systolic blood pressure Diastolic blood pressure Provider Name and Address Organization Details Last Updated DateTime 01/24/2024 152.4 cm 39.5 kg/m2 12221.66 g 123 mm[Hg] 86 mm[Hg] Diana Renae [facility] 4 17:02:17 Date Recorded Body height Body mass index (BMI) Body weight Systolic blood pressure Diastolic blood pressure Provider Name and Address Organization Details Last Updated DateTime 02/27/2024 152.4 cm 40.8 kg/m2 37299.81 g 119 mm[Hg] 78 mm[Hg] Diana Oc [facility] 4 16:53:59 Social History Question Answer Notes LastModified by Organizat ion Details LastModified Time Tobacco Smoking Status Never Smoker Marta Albertina abdi, [facility] 10/19/2022 12:52:56 If You Are , What Was Your Level Of Alcohol Consumption Prior To ? Occasional Information not available 10/19/2022 Are You Blind Or Do You Have Difficulty Seeing? No [email or web address] Information n ot available 10/19/2022 What Is Your Level Of Caffeine Consumption? Occasional [email or web address] Information not available 10/19/2022 In The 14 Days Before Symptom Onset, Have You Had Close Contact With A Laboratory-confirm ed COVID-19 While That Case Was Ill? No [email or web address] Information n ot available 10/19/2022 In The 14 Days Before Symptom Onset, Have You Had Close Contact With A Person Who Is Under Investigation For COVID-19 While That Person Was Ill? No [email or web address] Information not available 10/19/2022 Have You Been To An Area Known To Be High Risk For COVID-19? No [email or web address] Information not available 10/19/2022 Are You Deaf Or Do You Have Serious Difficulty Hearing? No Information not available 10/19/2022 Do You Have Smoke And Carbon Monoxide Detectors In Your Home? Yes [email or web address] Information not available 10/19/2022 Do You Use Sunscreen Routinely? Yes [email or web address] Information not available 10/19/2022 Has Tobacco Cessation Counseling Been Provided? No [email or web address] Information not available 10/19/2022 Do You Have Difficulty Walking Or Climbing Stairs? No [email or web address] Information not available 10/19/2022 Sex: Unknown Functional Status Question Answer Note LastModified by Organizat ion Details LastModified Time Do you use any illicit or recreational drugs? No [email or web address] Information not available 10/19/2022 Do you or have you ever used any other forms of tobacco or nicotine? No [email or web address] Information not available 10/19/2022 What is your level of alcohol consumption? None [email or web address] Information not available 10/19/2022 Are you able to walk? YESWOREST [email or web address] Information not available 10/19/2022 Are you able to care for yourself? Yes [email or web address] Information n ot available 10/19/2022 Do you have difficulty dressing or bathing? No [email or web address] Information not available 10/19/2022 Mental Status None recorded. Family History Relationship Description Onset Age of this Age Resolved Age Notes LastModified by Organization Details LastModified Time Maternal Grandmother Malignant tumor of breast [email or web address] Not available 2022 18:02:55 Maternal Grandmother Malignant neoplasm of uterus [email or web address] Not available 2023 11:07:54 Mother Cyst of ovary [email or web address] Not available 2022 18:03:22 Maternal Aunt Cyst of ovary [email or web address] Not available 2022 18:03:22 Sister Polycystic ovary syndrome [email or web address] Not available 2022 18:03:31 Medical History Condition Response Allergies (Food, seasonal, environmental ) N Other N Blood Transfusion N Drug/Latex Allergies/Reactions N Breast Cancer N Dermatologic Disorders N Lung Disease N Defects or Inherited Disease N Breast Problem N Gestational Diabetes N Hematologic disorders N Anesthesia Complications N History of STI N Deep Vein Thrombosis N Polycystic ovary syndrome N Anxiety Disorder Y Autoimmune disease N Arthritis N Infertility N Polyps N Acid Reflux (GERD) Y History of abnormal pap Y Cancer N Stroke N Neurologic/Epilepsy N Endometriosis N High Cholesterol N Headaches N Fibromyalgia N Kidney Disease N Heart Problems N Kidney or Bladder Problems N Thyroid Problems Y GI Problems N Eating Disorder N Anemia Y Art (IVF or FET) N Psychiatric Illness N Ovarian Cancer N Diabetes N Pulmonary (TB, Asthma) N Hepatitis/Liver Disease N No Past Medical History N Eczema N Urinary Tract Infection N Abuse/Domestic Violence N Asthma N Trauma/Violence N Depression/ depression Y Heart Disease N Pre-Eclampsia N Hypertension N Osteoporosis N Thrombophilias N Gynecological History Statement/Question Response Abnormal Pap Yes Flow Heavy Date of LMP 12/10/2023 On BCP's at Conception? N Was last menstrual period normal Y STIs/STDs Y HPV Vaccine Y Colposcopy 07/16/2018 Duration of Flow (days) 6 Current Control Method Hysterectom y Age at First Child 23 Are cycles usually normal Y Frequency of Cycle (Q days) 28 Sexually Active? Y Menses Monthly Y Date of Last Pap Smear 05/23/2022 Sexual Problems? N Desired Control Method Hysterectom y LMP Approximate Obstetrics History GPAL:G 2 P 2 0 0 2 Type Value Full Term 2 Living 2 Total 2 Past Encounters Encounter ID Performer Location Encounter Start Date Encounter Closed Date Diagnosis/Indication Diagnosis SNOMED-CT Code Diagnosis ICD10 Code Diagnosis Note [id number] David Glover MD [place] [address] [address] 07/26/2022 16:37:40 07/26/2022 18:01:39 [id number] David Glover MD [place] [address],[place] [address] 07/26/2022 16:45:43 07/26/2022 18:30:04 Nausea and vomiting 57016554 R11.2 Amenorrhea 38573630 N91. 2 this patient is a 32-year-ol d female presents for amenorrhea . She has a positive test and ultrasound revealed today a 9 week gestation . It is viable. talked about care. Talked about genetic screening. Talked about 12 week ultrasound . Talked about precaution s for . That include exercise, diet, medication s. Spent more than 20 minutes face-to-fa ce. More than 50% was counseling . She will follow-up in 4 weeks. [id number] David Glover MD [place] [address],[place] [address] 09/05/2022 10:47:09 09/05/2022 13:31:25 Spotting per vagina in 600421863 O26.859 Z3A.14 [id number] David Glover MD [place] [address],[place] [address] 09/11/2022 11:46:41 09/11/2022 15:47:16 screening 045805100 Z36.89 Routine an tenatal care 982957166 Z34.82 [id number] David Glover MD [place] [address],[place] [address] 10/03/2022 12:11:43 10/03/2022 13:39:44 Medical examination for suspected condition 732883784 Z03.79 Z3A.18 [id number] MD Layla Flynn [address],[place] [address] 10/19/2022 11:00:10 10/19/2022 12:52:09 screening 380339162 Z36.3 [id number] MD Layla Flynn [address],[place] [address] 10/19/2022 11:01:58 10/19/2022 13:38:01 Routine care 633740923 Z34.82 Venereal d isease screening 019180791 Z11.3 Hyperthyro idism in 4288576357 9100 E05.90 Hypothyroidism 95414753 E03.9 [id number] MD Layla Flynn [address],[place] [address] 11/16/2022 10:23:47 11/16/2022 11:41:17 screening 477852621 Z36.2 Z3A.25 [id number] David Glover MD [place] [address],[place] [address] 11/16/2022 10:24:14 11/16/2022 12:16:43 Mixed anxiety and depressive disorder 897556588 F41.8 [id number] MD Layla Flynn [address],[place] [address] 12/08/2022 11:45:20 12/08/2022 13:57:21 Routine care 945575749 Z34.82 [id number] Lucie Powers MD [place] [address],[place] [address] 12/22/2022 15:45:01 12/22/2022 16:31:41 Anemia 652551355 D64.9 Anxiety 52362922 F41.9 Hypothyroidism 18077312 E03.9 Insufficie nt weight gain of 23378160 O26.13 Maternal o besity complicating , childbirth and the puerperium, antepartum 4091638230 07 O99.213 [id number] MD Layla Flynn [address],[place] [address] 01/05/2023 15:33:24 01/05/2023 16:53:05 Routine care 575263062 Z34.82 [id number] MD Layla Flynn [address],[place] [address] 01/09/2023 15:20:29 01/09/2023 16:40:05 Uterine size for dates discrepancy 391252924 O26.843 O26.13 O99.213 Z3A.32 [id number] MD Layla Flynn [address],[place] [address] 01/19/2023 09:53:38 01/19/2023 10:27:48 Maternal obesity complicating , childbirth and the puerperium, antepartum 9839473772 07 O99.213 [id number] MD Layla Flynn [address],[place] [address] 01/19/2023 09:53:55 01/19/2023 12:17:36 Routine care 289414949 Z34.82 [id number] MD Layla Flynn [address],[place] [address] 01/24/2023 09:14:33 01/24/2023 10:05:04 Maternal obesity complicating , childbirth and the puerperium, antepartum 5635547271 07 O99.213 Z3A.35 [id number] MD Layla Flynn [address],[place] [address] 01/24/2023 09:14:50 01/24/2023 10:51:38 Maternal obesity complicating , childbirth and the puerperium, antepartum 5050831225 07 O99.213 Z3A.35 [id number] [facility] [address],[place] [address] 01/24/2023 09:15:19 01/24/2023 11:19:18 Routine care 239560540 Z34.93 [id number] David Glover MD [place] [address],[place] [address] 01/31/2023 09:24:59 01/31/2023 10:12:43 Maternal obesity complicating , childbirth and the puerperium, antepartum 1305553510 07 O99.213 Z3A.36 [id number] David Glover MD [place] [address],[place] [address] 01/31/2023 09:25:14 01/31/2023 11:03:57 Maternal obesity complicating , childbirth and the puerperium, antepartum 2829968623 07 O99.213 Z3A.36 [id number] [facility] [address],[place] [address] 01/31/2023 09:25:26 01/31/2023 11:03:24 Routine care 270517276 Z34.93 [id number] David Glover MD [place] [address],[place] [address] 02/07/2023 10:59:11 02/07/2023 11:41:49 Maternal obesity complicating , childbirth and the puerperium, antepartum 6375900022 07 O99.213 Z3A.36 [id number] David Glover MD [place] [address],[place] [address] 02/07/2023 10:59:45 02/07/2023 12:14:12 Maternal obesity complicating , childbirth and the puerperium, antepartum 4055909724 07 O99.213 Z3A.37 [id number] [facility] [address],[place] [address] 02/07/2023 11:00:05 02/07/2023 13:20:11 Routine care 836017605 Z34.93 [id number] David Glover MD [place] [address],[place] [address] 02/14/2023 11:24:25 02/14/2023 12:17:01 Maternal obesity complicating , childbirth and the puerperium, antepartum 5266039995 07 O99.213 Z3A.37 [id number] David Glover MD [place] [address],[place] [address] 02/14/2023 11:24:39 02/14/2023 13:30:57 Maternal obesity complicating , childbirth and the puerperium, antepartum 3668444937 07 O99.213 Z3A.38 [id number] [facility] [address] [place] [address] 02/14/2023 11:24:54 02/14/2023 14:03:42 Routine care 686463941 Z34.93 Urinary symptoms 1469757 08 R39.9 [id number] [facility] [address] [place] [address] 03/16/2023 09:57:07 03/16/2023 11:53:24 care 675373073 Z39.2 continue sertraline , call if needs increase, note for work, plan to check in weeklyf/u in person wwe/med check 2 mo Anxiety 77895491 F41.9 [id number] Lizett Madsen [facility] [address] [place] [address] 08/09/2023 10:57:52 08/09/2023 11:30:59 Urinary symptoms 971597561 R39.9 Prominent subjective sx's and suspect urine dipWill treat and send urine culture.Rx sent Counseled on medication R/B's, Most common side effects, & use. All questions were answered to patient satisfacti on. Health Hx was reviewed and updated as reported in chart. Time spent in visit is a total of 21 mins with at least 50% of visit consisting of counseling and review of plan of care. [id number] David Glover MD [place] [address],[facility] [place] [address] 11/01/2023 14:53:01 11/01/2023 17:03:39 Pain in pelvis 60697074 R10.2 [id number] David Glover MD [place] [address],[facility] [place] [address] 11/12/2023 10:55:34 11/13/2023 02:04:23 Menorrhagia 477144483 N92.0 This patient is a 33-year-ol d female presents for heavy vaginal bleeding. She has longstandi ng very heavy bleeding. Her menses are regular. However, they require double protection . Patient has accidents, getting blood on her bedding and clothing. Is affected work. She changes a pad or tampon every hour. She leaks blood around the pad and tampon. This bleeding has a profound impact on her quality of life and her activities of daily living.Danika dick has hydrosalpi nx on the left. She has left sided pelvic pain. She is pain with intercours e. Pain has been present for more than a year. It affects her quality of life and activities of daily living. We discussed treatment options. We spent over 40 minutes face-to-fa ce. More than 50% was counseling . We have essentiall y made a decision to perform surgery. She would like definitive surgical treatment for the above problems. It is the logical choice for this collection of problems which include an endometria l lesion. She will call back to to confirm that we will proceed with total laparoscop ic hysterecto my bilateral salpingect perry. Hydrosalpinx 32127883 N7 0.11 Lesion of endometrium 92 90788186 9101 N85.9 Pain in pelvis 79783278 R10.2 [id number] David Glover MD [place] [address] [address] 01/03/2024 12:18:48 01/04/2024 06:34:34 Menorrhagia 120337768 N92.0 this patient is a 33-year-ol d female with severe menorrhagi a. We have agreed to perform total laparoscop ic hysterecto my bilateral salpingect perry. She understand s the risks, benefits, and alternativ es. She has completed the informed consent process and is ready to proceed. [id number] David Glover MD [facility] [address] [address] 01/24/2024 16:52:36 01/25/2024 02:11:01 Postoperative care 222235815 Z48.89 female Patient presents for postop follow-up. She is 1 week postop from a total laparoscop ic hysterecto my bilateral salpingect perry. She has no complaints . Her incisions are clean dry and intact. She is recovering normally. She will follow-up as needed. [id number] David Glover MD [facility] [address] [address] 02/27/2024 16:45:27 02/28/2024 03:15:22 Postoperative visit 915637181 Z48.89 female Patient presents for postop follow-up. She is 6 week postop from a total laparoscop ic hysterecto my bilateral salpingect perry. She has no complaints . Her incisions are clean dry and intact. She is recovering normally. She will follow-up as needed. Health Concerns Section Related Observation LastModified by Organization Detai ls LastModified Time None Recorded Concern Status LastModified by Organization Details LastModified Time None Recorded Advance Directives Directive None Recorded Payers Insurance Date Sequence Insurance Name Policy Number Policy Desouza Covered Member ID Desouza Member ID Guarantor Name 11/20/2024 1 [facility] - DOS ON OR AFTER 21 (MEDICAID REPLACEMENT - HMO) Cokry Flores [id number] Corky Flores Notes Date Note Type Note Provider Name and Address Organization Details Recorded Time 11/12/2023 text/html This patient is a 33-year-old female presents for heavy vaginal bleeding. She has longstanding very heavy bleeding. Her menses are regular. However, they require double protection. Patient has accidents, getting blood on her bedding and clothing. Is affected work. She changes a pad or tampon every hour. She leaks blood around the pad and tampon. This bleeding has a profound impact on her quality of life and her activities of daily living.Patient has hydrosalpinx on the left. She has left sided pelvic pain. She is pain with intercourse. Pain has been present for more than a year. It affects her quality of life and activities of daily living. We discussed treatment options. We spent over 40 minutes [id number]. More than 50% was counseling. We have essentially made a decision to perform surgery. She would like definitive surgical treatment for the above problems. It is the logical choice for this collection of problems which include an endometrial lesion. She will call back to to confirm that we will proceed with total laparoscopic hysterectomy bilateral salpingectomy. David Glover MD [address], [place], [address], [facility] 11/12/2023 18:15:31 01/03/2024 text/html this patient is a 33-year-old female with longstanding severe menorrhagia. We have agreed to perform total laparoscopic hysterectomy and bilateral salpingectomy. The patient understands the procedure. The procedure was described to the patient in great detail. the patient also understands the risks. The risks were also explained in detail. She understands that injuries May occur during surgery. She understands these injuries can result in hospitalization, more surgery, and severe illness. She understands there is risk of hemorrhage and infection. David Glover MD [address], [place], [address], [facility] 01/03/2024 18:30:54 01/24/2024 text/html female Patient presents for postop follow-up. She is 1 week postop from a total laparoscopic hysterectomy bilateral salpingectomy. She has no complaints. Her incisions are clean dry and intact. She is recovering normally. She will follow-up as needed. David Glover MD [address], [place], [address], [facility] 01/24/2024 18:23:26 02/27/2024 text/html female Patient presents for postop follow-up. She is 6 week postop from a total laparoscopic hysterectomy bilateral salpingectomy. She has no complaints. Her incisions are clean dry and intact. She is recovering normally. She will follow-up as needed. David Glover MD [address], [place], [address], [facility] 02/27/2024 18:00:38 OBGyn Episode Ob Episode Information Episode Created Date Number of Fetuses Patient Bloodtype Patient rh Status Prepregnancy Weight lbs Domestic Partner Domestic Partner Phone Father Name Launderette Attendant Status 07/26/19 23 1 CLOSED Fetus Data First Name Last Name Admitted to NICU Weight (g) Sex Living Outcome Pediatric Complications Fetus ID Race Codes Race Delivery Type 3883.65 4704 M Full Term [id number] Vaginal Delivery Jose Calculation Initial Jose Date Initial Exam Date Initial Exam Provider Initial Ultrasound Date Last Menstrual Period Date Ultra Sound Weeks Gestation 0 Eighteen To Twenty Week Jose Update Ultra Sound Date Fundal Height At Umbil Quickening Date Ultra Sound Latest Weeks Gestation Final Jose Confirmed By Final Jose Confirmed Date Final Jose Date Ultra Sound Latest Days Gestation 0 0 Menstrual History Last Menstrual Date Menses Monthly On Bcp Conception Prior Menses Frequency Hcg Plus Date Menarche Onset Age Delivery Information Delivery Date Delivery Type Labor Anesthesia Weeks Gestation Incision Type Labor Labor Length Hrs Delivered By Post Complications Tubal Sterilization Discharge Date Comments 4 41 Wilmer Discharge Information Feeding Method Contraceptive Method Maternal HG B and HCT Levels Ob Episode Information Episode Created Date Number of Fetuses Patient Bloodtype Patient rh Status Prepregnancy Weight lbs Domestic Partner Domestic Partner Phone Father Name Launderette Attendant Status 09/11/19 23 1 O Positive 207 CLOSED Fetus Data First Name Last Name Admitted to NICU Weight (g) Sex Living Outcome Pediatric Complications Fetus ID Race Codes Race Delivery Type 3486.98 85 M true Full Term [id number] Vaginal Delivery Problems Problem Notes resolution of nuchal cordAFP WNL01/09/23 - NC x 3. [facility] 01/15/23 0730 U/S, NST & OV. testing changed to twice wkly Problem Name Start Date End Date Resolution Snomed Code Not e Anxiety [id number] not trxed - to start sertraline Maternal obesity complicating , childbirth and the puerperium, antepartum [id number] BMI 39- ante testing 37w Insufficient weight gain of [id number] down 11# a t 30w- growth US Anemia [id number] oral iron Female sterilization [id number] Jose Calculation Initial Jose Date Initial Exam Date Initial Exam Provider Initial Ultrasound Date Last Menstrual Period Date Ultra Sound Weeks Gestation 02/28/2023 09/11/2022 07/26/2022 05/24/2022 8 Eighteen To Twenty Week Jose Update Ultra Sound Date Fundal Height At Umbil Quickening Date Ultra Sound Latest Weeks Gestation Final Jose Confirmed By Final Jose Confirmed Date Final Jose Date Ultra Sound Latest Days Gestation 0 [email or web address] 09/11/2022 02/29/20 23 0 Pre-rachel Flowsheet Flowsheet Date 09/11/2022 Chirinos Score Blood Edema Fundus Height Fundus Units Glucose Ketones Leukocytes Nitrite Labor Signs Protein Cervic Dilation Cervic Effacement Cervic Station Type Weight in lbs Pre/Post Dialysis Refused Weight 200.200909264979 BP Diastolic BP Location Tested BP Systolic BP Type 77 R arm 117 sitting Fetus Heart Rate Present A 1456 Fetus Movement Comments This patient is a 32-year-ol d 2 para 1001 at 15 weeks gestation who presents for initial care. Has a history of a vaginal . Is not sedated for COVID. Was given vaccine recommendations. Talked about care in detail. She will begin routine care. Flowsheet Date 10/03/2022 Chirinos Score Blood Edema Fundus Height Fundus Units Glucose Ketones Leukocytes Nitrite Labor Signs Protein Cervic Dilation Cervic Effacement Cervic Station Type Weight in lbs Pre/Post Dialysis Refused BP Diastolic BP Location Tested BP Systolic BP Type Fetus Heart Rate Present Fetus Movement Comments Flowsheet Date 10/19/2022 Chirinos Score Blood Edema Fundus Height Fundus Units Glucose Ketones Leukocytes Nitrite Labor Signs Protein Cervic Dilation Cervic Effacement Cervic Station Type Weight in lbs Pre/Post Dialysis Refused BP Diastolic BP Location Tested BP Systolic BP Type Fetus Heart Rate Present Fetus Movement Comments Flowsheet Date 10/19/2022 Chirinos Score Blood Edema Fundus Height Fundus Units Glucose Ketones Leukocytes Nitrite Labor Signs Protein Cervic Dilation Cervic Effacement Cervic Station neg none none trace Type Weight in lbs Pre/Post Dialysis Refused Weight 200.144172499403 BP Diastolic BP Location Tested BP Systolic BP Type 74 108 Fetus Heart Rate Present Fetus Movement A Yes Comments Doing well. Does have acid r eflux and a sour stomach. Discussed use of pepcid. Started on medication but accidentally spilled medication and was only able to take for 2 weeks. Has not had meds in 2 weeks. Will go ahead with blood draw today. New RX sent and patient will start today. Having a boy! [employer] precautions given. Plan to repeat ultrasound in 4 weeks. Pt desires sterilization. She will discuss with Dr Glover at next visit. Flowsheet Date 11/16/2022 Chirinos Score Blood Edema Fundus Height Fundus Units Glucose Ketones Leukocytes Nitrite Labor Signs Protein Cervic Dilation Cervic Effacement Cervic Station Type Weight in lbs Pre/Post Dialysis Refused BP Diastolic BP Location Tested BP Systolic BP Type Fetus Heart Rate Present Fetus Movement Comments Flowsheet Date 11/16/2022 Chirinos Score Blood Edema Fundus Height Fundus Units Glucose Ketones Leukocytes Nitrite Labor Signs Protein Cervic Dilation Cervic Effacement Cervic Station 25 Type Weight in lbs Pre/Post Dialysis Refused Weight 207.762125873975 BP Diastolic BP Location Tested BP Systolic BP Type 79 R arm 126 sitting Fetus Heart Rate Present A 145 Fetus Movement Comments patient reports continued an xiety, suffering, was treated for anxiety prior to the , we agreed to restart treatment. Sertraline 50 mg. She will follow up just 3 weeks. Flowsheet Date 12/08/2022 Chirinos Score Blood Edema Fundus Height Fundus Units Glucose Ketones Leukocytes Nitrite Labor Signs Protein Cervic Dilation Cervic Effacement Cervic Station 28 Type Weight in lbs Pre/Post Dialysis Refused Weight 205.216736189894 BP Diastolic BP Location Tested BP Systolic BP Type 77 R arm 120 sitting Fetus Heart Rate Present A 145 Fetus Movement A Yes Comments no complaints, no problems, recent thyroid testing -Normal, a diabetes screening early next week. Flowsheet Date 12/22/2022 Chirinos Score Blood Edema Fundus Height Fundus Units Glucose Ketones Leukocytes Nitrite Labor Signs Protein Cervic Dilation Cervic Effacement Cervic Station none 39 Type Weight in lbs Pre/Post Dialysis Refused Weight 203.59328982940 BP Diastolic BP Location Tested BP Systolic BP Type 71 112 Fetus Heart Rate Present A 145 Fetus Movement A Yes Comments Doing ok. Having dizzy spell s, just found to be anemic and started iron yesterday. seen in triage yesterday for contractions, dx UTI and improved today. Anxiety much improved on zoloft. Stopped synthroid when last level was normal, will recheck today, discussed it was normal because of the supplementation and will likely need to restart. GCT wnl. Discussed testing for BMI. Has lost 11# this , will monitor, plan growth US. Flowsheet Date 01/05/2023 Chirinos Score Blood Edema Fundus Height Fundus Units Glucose Ketones Leukocytes Nitrite Labor Signs Protein Cervic Dilation Cervic Effacement Cervic Station 35 none trace Type Weight in lbs Pre/Post Dialysis Refused Weight 205.970875843467 BP Diastolic BP Location Tested BP Systolic BP Type 75 R arm 118 sitting Fetus Heart Rate Present A 138 Fetus Movement Comments size larger than dates-ultra sound, diarrhea, patient, seen in L and D for control, to sign tubal papers and Flowsheet Date 01/09/2023 Chirinos Score Blood Edema Fundus Height Fundus Units Glucose Ketones Leukocytes Nitrite Labor Signs Protein Cervic Dilation Cervic Effacement Cervic Station Type Weight in lbs Pre/Post Dialysis Refused BP Diastolic BP Location Tested BP Systolic BP Type Fetus Heart Rate Present Fetus Movement Comments Flowsheet Date 01/19/2023 Chirinos Score Blood Edema Fundus Height Fundus Units Glucose Ketones Leukocytes Nitrite Labor Signs Protein Cervic Dilation Cervic Effacement Cervic Station Type Weight in lbs Pre/Post Dialysis Refused BP Diastolic BP Location Tested BP Systolic BP Type Fetus Heart Rate Present Fetus Movement Comments Flowsheet Date 01/19/2023 Chirinos Score Blood Edema Fundus Height Fundus Units Glucose Ketones Leukocytes Nitrite Labor Signs Protein Cervic Dilation Cervic Effacement Cervic Station 36 none trace Type Weight in lbs Pre/Post Dialysis Refused Weight 203.81361360819 BP Diastolic BP Location Tested BP Systolic BP Type 76 R arm 115 sitting Fetus Heart Rate Present A 144 Fetus Movement A Yes Comments resolution of nuchal cord, t o induce at 39 weeks, who no complaints, to change NST use to once weekly for BMI Flowsheet Date 01/24/2023 Chirinos Score Blood Edema Fundus Height Fundus Units Glucose Ketones Leukocytes Nitrite Labor Signs Protein Cervic Dilation Cervic Effacement Cervic Station Type Weight in lbs Pre/Post Dialysis Refused BP Diastolic BP Location Tested BP Systolic BP Type Fetus Heart Rate Present Fetus Movement Comments Flowsheet Date 01/24/2023 Chirinos Score Blood Edema Fundus Height Fundus Units Glucose Ketones Leukocytes Nitrite Labor Signs Protein Cervic Dilation Cervic Effacement Cervic Station Type Weight in lbs Pre/Post Dialysis Refused BP Diastolic BP Location Tested BP Systolic BP Type Fetus Heart Rate Present Fetus Movement Comments Flowsheet Date 01/24/2023 Chirinos Score Blood Edema Fundus Height Fundus Units Glucose Ketones Leukocytes Nitrite Labor Signs Protein Cervic Dilation Cervic Effacement Cervic Station neg none none trace Type Weight in lbs Pre/Post Dialysis Refused Weight 203.31069177655 BP Diastolic BP Location Tested BP Systolic BP Type 75 113 Fetus Heart Rate Present Fetus Movement A Yes Comments patient is having some pain, contractions, and nausea. NC resolved BPP 8/8, ptl precautions reviewed, trying to rest, increase hydration gbs next week Flowsheet Date 01/31/2023 Chirinos Score Blood Edema Fundus Height Fundus Units Glucose Ketones Leukocytes Nitrite Labor Signs Protein Cervic Dilation Cervic Effacement Cervic Station Type Weight in lbs Pre/Post Dialysis Refused BP Diastolic BP Location Tested BP Systolic BP Type Fetus Heart Rate Present Fetus Movement Comments Flowsheet Date 01/31/2023 Chirinos Score Blood Edema Fundus Height Fundus Units Glucose Ketones Leukocytes Nitrite Labor Signs Protein Cervic Dilation Cervic Effacement Cervic Station Type Weight in lbs Pre/Post Dialysis Refused BP Diastolic BP Location Tested BP Systolic BP Type Fetus Heart Rate Present Fetus Movement Comments Flowsheet Date 01/31/2023 Chirinos Score Blood Edema Fundus Height Fundus Units Glucose Ketones Leukocytes Nitrite Labor Signs Protein Cervic Dilation Cervic Effacement Cervic Station neg none none trace 1cm 50% -3 Type Weight in lbs Pre/Post Dialysis Refused Weight 201.064504584646 BP Diastolic BP Location Tested BP Systolic BP Type 71 103 Fetus Heart Rate Present Fetus Movement A Yes Comments patient is having some pain, cramping, contractions and nausea. BPP 8/8. pelvic /back pain, rec yoga ball to help with pressure, labor precautions reviewed f/u one week GBS done Flowsheet Date 02/07/2023 Chirinos Score Blood Edema Fundus Height Fundus Units Glucose Ketones Leukocytes Nitrite Labor Signs Protein Cervic Dilation Cervic Effacement Cervic Station Type Weight in lbs Pre/Post Dialysis Refused BP Diastolic BP Location Tested BP Systolic BP Type Fetus Heart Rate Present Fetus Movement Comments Flowsheet Date 02/07/2023 Chirinos Score Blood Edema Fundus Height Fundus Units Glucose Ketones Leukocytes Nitrite Labor Signs Protein Cervic Dilation Cervic Effacement Cervic Station Type Weight in lbs Pre/Post Dialysis Refused BP Diastolic BP Location Tested BP Systolic BP Type Fetus Heart Rate Present Fetus Movement Comments Flowsheet Date 02/07/2023 Chirinos Score Blood Edema Fundus Height Fundus Units Glucose Ketones Leukocytes Nitrite Labor Signs Protein Cervic Dilation Cervic Effacement Cervic Station neg trace none trace 2cm 50% -3 Type Weight in lbs Pre/Post Dialysis Refused Weight 200.082506935144 BP Diastolic BP Location Tested BP Systolic BP Type 74 115 Fetus Heart Rate Present Fetus Movement A Decreased Comments patient is having some pain, vision changes, contractions and nausea. check labs, bp normal, vision changes since 28 weeks, precautions reviewed, IOL scheduled efw 45% bpp 8/8 Flowsheet Date 02/14/2023 Chirinos Score Blood Edema Fundus Height Fundus Units Glucose Ketones Leukocytes Nitrite Labor Signs Protein Cervic Dilation Cervic Effacement Cervic Station Type Weight in lbs Pre/Post Dialysis Refused BP Diastolic BP Location Tested BP Systolic BP Type Fetus Heart Rate Present Fetus Movement Comments Flowsheet Date 02/14/2023 Chirinos Score Blood Edema Fundus Height Fundus Units Glucose Ketones Leukocytes Nitrite Labor Signs Protein Cervic Dilation Cervic Effacement Cervic Station Type Weight in lbs Pre/Post Dialysis Refused BP Diastolic BP Location Tested BP Systolic BP Type Fetus Heart Rate Present Fetus Movement Comments Flowsheet Date 02/14/2023 Chirinos Score Blood Edema Fundus Height Fundus Units Glucose Ketones Leukocytes Nitrite Labor Signs Protein Cervic Dilation Cervic Effacement Cervic Station 2cm 50% -2 Type Weight in lbs Pre/Post Dialysis Refused BP Diastolic BP Location Tested BP Systolic BP Type Fetus Heart Rate Present Fetus Movement Comments bpp 8/10, has not been feeli ng movemet, felt one today on NST and thats it, had a feeling of somethings not right before US, will send pt for extended monitoring Menstrual History Last Menstrual Date Menses Monthly On Bcp Conception Prior Menses Frequency Hcg Plus Date Menarche Onset Age 1105/24/2022 Genetic Screening And Infection History Question Response Note Mental Retardation/Autism false Patient's Age Will Be 35 Years Or Older At Estim ated Date of Delivery false Thalassemia (Zimbabwean, Kittitian, Mediterranean, Or Background): MCV < 80 false Neural Tube Defect (Meningomyelocele, Spina Bifi da, Or Anencephaly) false Congenital Heart Defect false Down Syndrome false Braydon-Sachs (eg, Samaritan, Cajun, K[place]wanda-Lima) f alse Edilberto Disease false Sickle Cell Disease Or Trait () false Hemophilia Or Other Blood Disorders false Muscular Dystrophy false Cystic Fibrosis false Ingle[place]'s Chorea false Intellectual Disability/Autism false If Yes, Was Person Tested For Fragile X? false Other Inherited Genetic Or Chromosomal Disorder false Maternal Metabolic Disorder (eg, Type 1 Diabetes , PKU) false Patient Or Baby's Father Had A Child With Defects Not Listed Above false Recurrent Loss, Or A Stillbirth false Medications (including Suppl ements, Vitamins, Herbs, OTC Drugs), Illicit/Recreational Drugs, Alcohol false If Yes, Agent(s) And Strength/Dosage false Any Other Genetic History false Live With Someone With TB Or Exposed To TB false Patient Or Partner Has History Of Genital Herpes false Rash Or Viral Illness Since Last Menstrual Perio d false History Of STD, Gonorrhea, Chlamydia, HPV, Syphi lis false Other Infection History false History of HIV false History of Hepatitis false Prior GBS-infected child false Hemoglobinopathy Or Carrier false Other Structural Defect false Recent Travel History Outside of Country false Delivery Information Delivery Date Delivery Type Labor Anesthesia Weeks Gestation Incision Type Labor Labor Length Hrs Delivered By Post Complications Tubal Sterilization Discharge Date Comments 3 Induce d Regional-Ep idural 38.1 false Sussy Maria CNM non-reass uring fht, Anemia, Anxiety, Maternal obesity complicat ing Discharge Information Feeding Method Contraceptive Method Maternal HG B and HCT Levels
--- OUTSIDE RECORDS SUMMARY | 2024-12-25 15:57 | XMS_ITS | Clinical Summary ---
Author Organization [facility] [employer] Address [address] [place] [address] Care Team Providers Care Field Training Manager Name Role Phone Ernie Braga MD Primary Care Provider [phone] Source Comments [facility] [employer]non-owned Affiliates and Associated Physician Practices is amultiple site organization consisting of ambulatory clinics and hospital sitesin [place], [place], [place] and [place]. This disclosure is being madepursuant to the Care Everywhere program and may not contain all information available regarding this patient. Last updated 18.[employer]Way [employer] Allergies No known active allergies Medications * Be aware that medications may not be up to date on this document. Alwaysverify current medications with the patient. ferrous gluconate 324 (38 Fe) MG tablet Take 1 (one) tablet by mouth once daily Active SD-Gdb-EL-[place]- 3 ( GUMMIES/DHA & FA PO) Active Active Problems Problem Noted Date Diagnosed Date Encounter for anatomic survey 01/15/2023 Social History Tobacco Use Types Packs/Day Years Used Date Smoking Tobacco: Never Assessed Overall Financial Resource Strain (CARDIA) Answe r Date Recorded How hard is it for you to pa y for the very basics like food, housing, medical care, and heating? Not hard at all 01/15/2023 [facility] Occupat ional Health - Occupational Stress Questionnaire Answer Date Recorded Do you feel stress - tense, restless, nervous, or anxious, or unable to sleep at night because your mind is troubled all the time - these days? To some extent 01/15/2023 Hunger Vital Sign Answer Date Recorded Within the past 12 months, y ou worried that your food would run out before you got the money to buy more. Never true 01/16/20 23 Within the past 12 months, t he food you bought just didn't last and you didn't have money to get more. Never true 01/15/2023 PRAPARE - Transportation Answer Date Re corded In the past 12 months, has l ack of transportation kept you from medical appointments or from getting medications? No 09/2022 In the past 12 months, has l ack of transportation kept you from meetings, work, or from getting things needed for daily living? No 01/15/2023 Housing Stability Vital Sign Answer Kael e Recorded In the last 12 months, was t here a time when you were not able to pay the mortgage or rent on time? No 01/15/2023 Number of Places Lived in the Last Year Not on f ile 01/15/2023 In the last 12 months, was t here a time when you did not have a steady place to sleep or slept in a prison (including now)? No 01/15/2023 [place] Depression Scale Answer Date Recorded [place] Depression Scale Total 3 01/15/2023 The thought of harming myself has occurred to me . 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 Gender Identity Not on file Sexual Orientation Not on file Last Filed Vital Signs Vital Sign Reading Time Taken Comments Blood Pressure 104/66 01/15/2023 9:48 AM CDT Pulse 95 01/15/2023 9:48 AM CDT Temperature - - Respiratory Rate - - Oxygen Saturation - - Inhaled Oxygen Concentration - - Weight 90.3 kg (199 lb) 01/15/2023 9:48 AM CDT Height 149.9 cm (4' 11) 01/15/2023 9:48 AM CDT Body Mass Index 40.19 01/15/2023 9:48 AM CDT Plan of Treatment Health Maintenance Due Date Last Done Comments PAP SMEAR 1988 HEPATITIS C SCREENING 07/17/2006 DTAP/TDAP/TD VACCINES (1 - Tdap) 2007 HEPATITIS B VACCINE (1 of 3 - 19+ 3-dose series) 2007 COVID-19 VACCINE ( - 2023-2 5 season) 2024 DEPRESSION SCREENING 07/16/2024 INFLUENZA VACCINE (Season Ended) 2025 ZOSTER VACCINE (1 of 2) 2038 HIV SCREENING Completed 12/18/2022 HIB VACCINE Aged Out No longer eligi ble based on patient's age to complete this topic HPV VACCINE Aged Out No longer eligi ble based on patient's age to complete this topic MENINGOCOCCAL (Group B) VACC INE SHARED DECISION-MAKING Aged Out No longer eligibl e based on patient's age to complete this topic MENINGOCOCCAL GROUPS A/C/Y/W VACCINE Aged Out No longer eligible b ased on patient's age to complete this topic PNEUMOCOCCAL VACCINE Aged Out No long er eligible based on patient's age to complete this topic Insurance [facility] * Guarantor: TREY GODINEZ Account Type Relation to Patient Date of Phone Billing Address Personal/Family [address] [place] [address] [facility] SELF PAY NO INSURANCE Member Subscriber Plan / Payer (Ef fective for All Dates) Name:Trey Godinez Member ID:Not on file Relation to Subscriber:Not on file Name:TREY GODINEZ Subscriber ID:Not on file Address: [address] [place] [address] Payer ID:Not on file Group ID:Not on file Type:Self Pay Address: [place], [place] * Guarantor: TREY GODINEZ Account Type Relation to Patient Date of Phone Billing Address Personal/Family [address] [place] [address] [facility] SELF PAY NO INSURANCE Member Subscriber Plan / Payer (Ef fective for All Dates) Name:Trey Godinez Member ID:Not on file Relation to Subscriber:Not on file Name:TREY GODINEZ Subscriber ID:Not on file Address: [address] [place] [address] Payer ID:Not on file Group ID:Not on file Type:Self Pay Address: [place], [place] * Guarantor: TREY GODINEZ Account Type Relation to Patient Date of Phone Billing Address Personal/Family [address] [place] [address] [facility] SELF PAY NO INSURANCE Member Subscriber Plan / Payer (Ef fective for All Dates) Name:Trey Godinez Member ID:Not on file Relation to Subscriber:Not on file Name:TREY GODINEZ Subscriber ID:Not on file Address: [address] [place] [address] Payer ID:Not on file Group ID:Not on file Type:Self Pay Address: [place], [place] Care Teams Field Training Manager Relationship Specialty Start Date End Date Ernie Braga MD [address] [place] [address] PCP - General 06/26/19
[2024-12-25 16:07] LABS: Alanine Aminotransferase 22 U/L (6-35); Albumin Level 4.6 g/dL (3.5-5.1); Alkaline Phosphatase 71 U/L (38-126); Anion Gap 9 mmol/L (4-12); Aspartate Amino Transferase 27 U/L (14-36); Bilirubin,Total 0.5 mg/dL (0.2-1.3); Blood Urea Nitrogen 14 mg/dL (7-17); Calcium 9.4 mg/dL (8.4-10.2); Carbon Dioxide 25 mmol/L (22-30); Chloride 104 mmol/L (98-107); Estimated CRCL calculation 90 ml/min; Estimated Glomerular Filt Rate > 60; Glucose 115 mg/dL (65-110); Lipase 173 U/L (23-300); Potassium 4.1 mmol/L (3.4-5.0); Sodium 138 mmol/L (137-145); Total Protein 7.9 g/dL (6.3-8.2)
--- NOTE | 2024-12-25 16:09 | ED_ITS ---
HPI - Chest Pain General Chief Complaint: Chest Pain Stated Complaint: sob, ear pain Time Seen by Provider: 12/25/24 15:45 History of Present Illness HPI narrative: 34-year-old female with no significant past medical history presenting to the emergency department with bilateral ear pain as well as some chest tightness. Patient states she was diagnosed with bilateral otitis and started on steroids and she completed the course was still having ear pain and now developing some chest tightness. Denies any asthma but states she had a history of pneumonia at the end of last year. Patient denies any difficulty breathing, nausea, vomiting, headache, vision changes. Not any acute distress, no cardiovascular disease to her knowledge. Denies any drainage at the years but does state that there is some muffling and bilateral ear pain. No fever chills. Related Data Home Medications ?Medication ?Instructions ?Recorded ?Confirmed ?Last Taken ?Type sertraline 50 mg tablet 50 mg PO DAILY 01/02/24 06/07/24 12/26/23 History Allergies Allergy/AdvReac Type Severity Reaction Status Date / Time No Known Allergies Allergy Verified 12/25/24 15:41 Review of Systems 2 Review of Systems: As reviewed above in HPI [facility] Past Medical History Medical History Obesity (BMI 30-39.9) Anxiety Surgical History Surgical History No pertinent past surgical history Family History Family History Sibling Hydronephrosis Social History Social History Smoking status: Never smoker Substance use: never Lack of Transportation: No Lack of Food: Never True Current Housing: I Have Housing Concerned About Future Housing: No Difficulty Paying Gas/Electric Bills: YES Difficulty Paying for Meds: No Currently Unemployed: No Education: High School Diploma/GED Difficulty w/ Childcare or Family Care: No Spiritual care concerns: No Exam 2 Narrative: GENERAL: [Well-appearing, well-nourished, and in no acute distress.] HEAD: [Normocephalic, atraumatic.] EYES: [PERRLA and EOMI.] ENT: Bilateral tympanic membranes are bulging with what appears to be effusions behind the TM, no purulent drainage, no external evidence of otitis externa, no tenderness of the mastoid process, not bulging of the auricle or any proptosis. Posterior oropharynx without any erythema or swelling NECK: Supple. CHEST: [Clear to auscultation. No respiratory distress.] HEART: [Regular rate and rhythm]. No murmur heard. [Normal peripheral pulses.] ABDOMEN: [Soft, nondistended], [nontender], [No rigidity or guarding] EXTREMITIES: Normal range of motion. [No edema.] SKIN: Warm, dry, no rash. NEURO: [No focal deficits]. Alert and oriented [x3.] PSYCH: [Normal mood and affect.] Course Vital Signs Vital signs: Vital Signs Temperature 36.6 C 12/25/24 15:39 Pulse Rate 95 12/25/24 15:39 Respiratory Rate 15 12/25/24 15:39 Blood Pressure 141/83 H 12/25/24 15:39 Pulse Oximetry 95 12/25/24 15:39 Oxygen Delivery Room Air 12/25/24 15:39 Temperature 36.6 C 12/25/24 15:39 Pulse Rate 89 12/25/24 15:47 Respiratory Rate 15 12/25/24 15:39 Blood Pressure 141/83 H 12/25/24 15:39 Pulse Oximetry 99 12/25/24 15:45 Oxygen Delivery Room Air 12/25/24 15:45 MDM - Chest Pain MDM Narrative Medical decision making narrative: 34-year-old otherwise healthy female presenting to the emergency department for evaluation of bilateral ear pain and now chest tightness. Patient completed a course of prednisone recently for her ear infection but has not had any symptomatic improvement. Denies any shortness a breath, nausea, vomiting, fever, chills, abdominal pain, back pain. She has bilateral tympanic membrane effusions but no signs of erythema, drainage, otitis externa or mastoiditis symptoms. She has clear breath sounds throughout, vital signs are reassuring without any significant hypertension, tachycardia, fever, hypoxia. She has strong symmetric pulses in clear breath sounds. Suspicion presently is for bilateral otitis that is currently failed steroid outpatient treatment so she will likely require antibiotics. Will also evaluate for any potential pneumonia, pneumothorax, ACS, electrolyte deficiencies or dehydration. CBC, CMP, lipase, EKG, chest x-ray, troponin ordered. Patient was given a dose of Augmentin here and discharged home with antibiotics upon completion of workup. Patient's workup shows a leukocytosis of 15.5 likely combination of your infection and steroid use. Normal hemoglobin. Mildly elevated platelets. Electrolytes unremarkable. Normal coagulation panel. Normal glucose. Normal LFTs. Negative troponin. Normal lipase. Chest x-ray shows no acute cardiopulmonary disease. EKG shows sinus rhythm without any ST segment elevations depressions, ectopy. Patient is safe for discharge home at this time will be given a prescription for Augmentin and return precautions. She will follow-up with regular doctor. Medical Records Data Attestation: I reviewed the patient's medical records. Lab Data Attestation: I reviewed the patient's lab results. 12/25/24 15:48 12/25/24 15:48 Labs: Lab Results 12/25/24 Range/Units 15:48 WBC 15.5 H (4.5-10.0) K/mm3 RBC 5.05 (4.2-5.4) M/mm3 Hgb 14.2 (12.0-15.0) g/dL Hct 44.0 (37.0-47.0) % MCV 87.1 (80-100) fl MCH 28.1 (26-34) pg MCHC 32.3 (32-36) g/dl RDW 13.6 (11.5-14.5) % Plt Count 405 H (150-375) k/mm3 MPV 9.7 (7.4-10.4) fl Immature Gran % (Auto) 1.9 H (0-0.5) % Neut % (Auto) 62.5 (45.5-73.1) % Lymph % (Auto) 29.2 (18.3-44.2) % Robeson % (Auto) 4.6 (2.6-8.5) % Eos % (Auto) 1.2 (0-4.4) % Baso % (Auto) 0.6 (0.2-1.2) % Lymph # (Auto) 4.53 H (0.9-3.2) K/mm3 Robeson # (Auto) 0.7 H (0.1-0.6) K/mm3 Eos # (Auto) 0.2 (0-0.3) K/mm3 Baso # (Auto) 0.1 (0.0-0.1) K/mm3 Abs Immat Gran (auto) 0.29 H (0.00-0.031) K/mm3 Absolute Neuts (auto) 9.7 H (1.3-6.7) K/mm3 Absolute Nucleated RBC 0.000 (0.0-0.012) K/mm3 Nucleated RBC % 0.0 (0.0-0.2) % PT 13.0 (11.1-14.7) Seconds INR 1.0 APTT 27.4 (22.3-36.8) Seconds Sodium 138 (137-145) mmol/L Potassium 4.1 (3.4-5.0) mmol/L Chloride 104 (98-107) mmol/L Carbon Dioxide 25 (22-30) mmol/L Anion Gap 9 (4-12) mmol/L BUN 14 (7-17) mg/dL Creatinine 0.83 (0.7-1.0) mg/dL Estim Creat Clear Calc 90 ml/min Estimated GFR > 60 (59 - ) Glucose 115 H (65-110) mg/dL Calcium 9.4 (8.4-10.2) mg/dL Total Bilirubin 0.5 (0.2-1.3) mg/dL AST 27 (14-36) U/L ALT 22 (6-35) U/L Alkaline Phosphatase 71 (38-126) U/L Troponin I < 0.012 (0.000-0.034) ng/mL Total Protein 7.9 (6.3-8.2) g/dL Albumin 4.6 (3.5-5.1) g/dL Lipase 173 (23-300) U/L Imaging Data Attestation: I personally reviewed and interpreted this imaging study as follows: My impression: Impressions Chest X-Ray 12/25/24 16:23 IMPRESSION: 1: NO ACUTE CARDIOPULMONARY DISEASE. ECG Data EKG #1: Attestation: I personally reviewed and interpreted this ECG as follows: ECG completion date: 12/25/24 ECG completion time: 15:48 Prior ECG tracings: available for review Interpretation: No ST segment elevations, depressions, acute inversions. QTC 441, QRS 92, rate of 87 beats per minute. NJ interval 126. Final interpretation normal sinus rhythm with no interval change compared to prior. Discharge Plan Discharge Clinical Impression: Bilateral acute otitis media, Chest pain Patient Disposition: Home Condition: Stable Instructions: Antibiotic Form, Chest Pain (ED), Ear Infection (ED) Additional Instructions: We will treat your infection with a course of antibiotics. Your chest pain workup was reassuring, no signs of any pneumonia, collapsed lung or cardiac disease. Follow-up with regular doctor. Return with any emergent concerns. Patient Language: Mauritanian Prescriptions: New amoxicillin-pot clavulanate 875-125 mg tablet 1 tablet PO Q12H 7 Days Qty: 14 0RF amoxicillin-pot clavulanate 875-125 mg tablet 1 tablet PO Q12H 10 Days Qty: 20 0RF No Action prednisone 20 mg tablet 40 mg PO DAILY 5 Days Qty: 10 0RF sertraline 50 mg tablet 50 mg PO DAILY Follow-up/Referrals: PHYSICIAN,QUALITY ASSURANCE COORDINATOR [Primary Care Provider] - Time of Disposition: 16:56
[2024-12-25 16:10] LABS: Partial Thromboplastin Time 27.4 Seconds (22.3-36.8)
[2024-12-25 16:19] LABS: Troponin I < 0.012 ng/mL (0.000-0.034)
--- OUTSIDE RECORDS SUMMARY | 2024-12-25 16:33 | XMS_ITS | Clinical Summary ---
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 This disclosure is being madepursuant to the Care Everywhere program and may not contain all information available regarding this patient. Last updated [employer] Allergies No known active allergies Medications * Be aware that medications may not be up to date on this document. Alwaysverify current medications with the patient. ferrous gluconate 324 (38 Fe) MG tablet Take 1 (one) tablet by mouth once daily Active UP-Xzc-XN-[place]- 3 ( GUMMIES/DHA & FA PO) Active [...] and heating? Not hard at all 01/15/2023 [facility] of Occupat ional Health - Occupational Stress [...] place to sleep or slept in a [facility] (including now)? No 01/15/2023 [place] Depression Scale Answer Date Recorded [place] Depression Scale Total 3 01/15/2023 The thought of harming myself has occurred to me . 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 Gender Identity Not on file Sexual Orientation [...] patient's age to complete this topic Insurance [facility] * Guarantor: TREY GODINEZ Account Type Relation to Patient Date of Phone Billing Address Personal/Family [address] [place] [address] [facility] SELF PAY NO INSURANCE Member Subscriber Plan / Payer (Ef fective for All Dates) Name:Trey Godinez Member ID:Not on file Relation to Subscriber:Not on file Name:TREY GODINEZ Subscriber ID:Not on file Address: [address] [place] [address] Payer ID:Not on file Group ID:Not on file Type:Self Pay Address: [place], [place] * Guarantor: TREY GODINEZ Account Type Relation to Patient Date of Phone Billing Address Personal/Family [address] [place] [address] [facility] SELF PAY NO INSURANCE Member Subscriber Plan / Payer (Ef fective for All Dates) Name:Trey Godinez Member ID:Not on file Relation to Subscriber:Not on file Name:TREY GODINEZ Subscriber ID:Not on file Address: [address] [place] [address] Payer ID:Not on file Group ID:Not on file Type:Self Pay Address: [place], [place] * Guarantor: TREY GODINEZ Account Type Relation to Patient Date of Phone Billing Address Personal/Family [address] [place] [address] [facility] SELF PAY NO INSURANCE Member Subscriber Plan / Payer (Ef fective for All Dates) Name:Trey Godinez Member ID:Not on file Relation to Subscriber:Not on file Name:TREY GODINEZ Subscriber ID:Not on file Address: [address] [place] [address] Payer ID:Not on file Group ID:Not on file Type:Self Pay Address: [place], [place] Care Teams Grapple Yarder Operator Relationship Specialty Start Date End Date Ernie Braga MD [address] [place] [address] PCP - General 06/26/19
[2024-12-25] MEDS: AMOXICILLIN/CLAVULANATE K 875-125 MG TAB 1 TABLET PO (17:01)
== END 2024-12-25 17:07 | disposition home or self-care (01) ==
PROVIDERS: Emergency Provider Student in an Organized Health Care Education/Training Program
DX: H66.93 Otitis media, unspecified, bilateral (principal); R07.89 Other chest pain; E66.9 Obesity, unspecified; Z68.42 Body mass index [BMI] 45.0-49.9, adult; F41.9 Anxiety disorder, unspecified; Z79.899 Other long term (current) drug therapy
CPT/HCPCS: 36415; 71046; 80053; 83690; 84484; 85025; 85610; 85730; 93005; 99284; A9270

== ENCOUNTER 2025-03-17 08:48 | Emergency (ER) | payer OTHER, SELFPAY ==
[2025-03-17 08:59] VITALS: BP 125/90; PULSE 80; RESP 18; TEMP 36.3; O2SAT 98
--- NOTE | 2025-03-17 09:26 | ED.URI ---
HPI - URI/Sore Throat General Chief Complaint: Upper Respiratory Infection Stated Complaint: Sore throat / Ear Pain / sob Time Seen by Provider: 03/17/25 09:27 Source: patient and RN notes reviewed Mode of arrival: ambulatory Limitations: no limitations History of Present Illness HPI Narrative: 34 y/o female presented for c/o nasal congestion, bilateral ear fullness, mild sore throat and subjective fever and chills. Onset 3 days. Denies sob, wheezing, vomiting or lethargy. Used throat spray for symptoms. reports family with similar symptoms. MD elicited complaint: cough Related Data Home Medications ?Medication ?Instructions ?Recorded ?Confirmed ?Last Taken ?Type sertraline 50 mg tablet 50 mg PO DAILY 01/02/24 03/17/25 12/26/23 History Allergies Allergy/AdvReac Type Severity Reaction Status Date / Time No Known Allergies Allergy Verified 03/17/25 08:51 Review of Systems Review of Systems: CONSTITUTIONAL: denies malaise, body aches, chills, sweats, fever EYES: Denies visual changes, redness, or discharge ENT: Reports rhinorrhea, congestion, otalgia, sore throat CARDIOVASCULAR: Denies chest pain, palpitations, edema RESPIRATORY: Reports cough, post nasal drainage. Denies dyspnea GASTROINTESTINAL: Denies abdominal pain, nausea, vomiting, diarrhea SKIN: Denies rash or itching NEUROLOGIC: Denies headache PMFSH Past Medical History Medical History Obesity (BMI 30-39.9) Anxiety Surgical History Surgical History No pertinent past surgical history Family History Family History Sibling Hydronephrosis Social History Social History Smoking status: Never smoker Substance use: never Lack of Transportation: No Lack of Food: Never True Current Housing: I Have Housing Concerned About Future Housing: No Difficulty Paying Gas/Electric Bills: YES Difficulty Paying for Meds: No Currently Unemployed: No Education: High School Diploma/GED Difficulty w/ Childcare or Family Care: No Spiritual care concerns: No Exam Narrative: GENERAL: well-appearing EYES: conjunctivae clear ENT: Mucous membranes moist. TM pearly keita with dull light reflex bilaterally; no tragal tenderness. Oropharynx not erythematous without lesions or exudate, no drooling, no hoarseness, no trismus, uvula midline. NECK: Supple. No lymphadenopathy CHEST: Clear to auscultation, breath sounds equal. HEART: Regular rate and rhythm. No murmur heard. SKIN: Warm, dry, no rash. NEURO: Alert and oriented x3. PSYCH: Normal mood and affect Course Course Emergency Course: Patient is aware of diagnosis, understands and agrees to treatment plan. Anticipatory guidance given. Patient agrees to follow-up as directed and is aware of reasons to seek care at the emergency department. Portions of this record may have been created with voice recognition software Level of Care: Express Care Visit Vital Signs Vital signs: Vital Signs Temperature 97.4 F L 03/17/25 08:59 Pulse Rate 80 03/17/25 08:59 Respiratory Rate 18 03/17/25 08:59 Blood Pressure 125/90 03/17/25 08:59 Pulse Oximetry 98 03/17/25 08:59 Oxygen Delivery Room Air 03/17/25 08:59 Temperature 97.4 F L 03/17/25 08:59 Pulse Rate 80 03/17/25 08:59 Respiratory Rate 18 03/17/25 08:59 Blood Pressure 125/90 03/17/25 08:59 Pulse Oximetry 98 03/17/25 08:59 Oxygen Delivery Room Air 03/17/25 08:59 reviewed MDM - URI/Sore Throat MDM Narrative Medical decision making narrative: Negative flu, COVID, and strep Discussed physical exam findings. Advised supportive measures and signs/symptoms to go to the ER. Pt is appropriate for outpt treatment and f/u. Differential Diagnosis Differential diagnosis: Likely upper respiratory infection, sinusitis and viral infection Discharge Plan Discharge Clinical Impression: Upper respiratory infection Patient Disposition: Home Condition: Stable Instructions: Antibiotic Form, Upper Respiratory Infection (ED) Additional Instructions: flu and COVID negative. Rapid strep swab was negative today You will be notified in a few days if the culture comes back positive for strep, and appropriate antibiotics will be called in at that time. if symptoms are due to a viral illness, it is not treated with antibiotics. Viral symptoms can be present for up to 10-14 days. Recommendations: Flonase spray and Zyrtec for sinus congestion Cough syrup may cause drowsiness; avoid driving or take it at night time. Tylenol every 8 hours as needed for pain/fever Soft foods, cool liquids, warm tea. Gargle with warm saltwater twice a day. Chloraseptic spray and throat lozenges. Rest and stay hydrated. --Follow up with your PCP --Go to the ER immediately if you cannot swallow your saliva, trouble breathing/wheezing, throat swelling, pain is persistent and severe Patient Language: Mozambican Prescriptions: No Action sertraline 50 mg tablet 50 mg PO DAILY Follow-up/Referrals: PHYSICIAN,EROSION CONTROL COORDINATOR [Primary Care Provider, Internal Medicine] Time of Disposition: 09:37
[2025-03-17 09:30] LABS: EDCOVIDSCREEN Negative (Negative); EDINFLUASCREEN Negative (Negative); EDINFLUBSCREEN Negative (Negative); EDSTREPNEGPOS1 Negative (Negative)
== END 2025-03-17 09:45 | disposition home or self-care (01) ==
PROVIDERS: Emergency Provider Nurse Practitioner Family
DX: J06.9 Acute upper respiratory infection, unspecified (principal); Z20.822 Contact with and (suspected) exposure to COVID-19; F41.9 Anxiety disorder, unspecified; E66.9 Obesity, unspecified; Z68.41 Body mass index [BMI] 40.0-44.9, adult
CPT/HCPCS: 87081; 87426; 87804; 87880; 99213; G0463